=== PATIENT | female | born 1960 | race Caucasian/White ===

== ENCOUNTER 2017-05-18 10:40 | Day surgery (SDC) | payer OTHER ==
[2017-05-17 10:21] VITALS: BMI 36.3
[2017-05-18] MEDS ORDERED: Lidocaine 2% w/Epinephrine 1:200K 20 ML VIAL ONE (11:25)
[2017-05-18] MEDS ORDERED: Ondansetron HCl/PF 4 MG/2 ML Vial ONE ×3 (11:29→11:55)
[2017-05-18] MEDS ORDERED: Fentanyl 100 MCG/2 ML VIAL ONE ×4 (11:29→14:01)
[2017-05-18 11:48] LABS: Hematocrit 40.2 % (36.0-47.0)
[2017-05-18] MEDS ORDERED: Glycopyrrolate 0.2 MG/ML 5 ML SYRINGE ONE (11:55)
[2017-05-18] MEDS ORDERED: Lidocaine 1% PF 5 ML VIAL ONE (11:55)
[2017-05-18] MEDS ORDERED: Dexamethasone 20 MG/5 ML VIAL ONE (11:55)
[2017-05-18] MEDS ORDERED: Succinylcholine Chloride 20 MG/ML 10 ml SYRINGE FS ONE (11:55)
[2017-05-18] MEDS ORDERED: Propofol 200 MG/20 ML VIAL ONE (11:55)
--- NOTE | 2017-05-18 13:48 | OP ---
PREOPERATIVE DIAGNOSIS: Hyperparathyroidism. POSTOPERATIVE DIAGNOSIS: Left superior parathyroid adenoma. PROCEDURE PERFORMED: Neck exploration with removal of a large left parathyroid adenoma using laryng eal nerve monitoring. PROCEDURE IN DETAIL: After consent was obtained, the patient was identified, brought to the operati ng room and placed on the operating table in supine position. General endotracheal anesthesia was o btained and the laryngeal nerve monitoring endotracheal tube was documented to be in position and fu nctioning. We then positioned the patient and prepped and draped, and infiltrated the line of inten ded incision with 1% lidocaine with 1:100,000 epinephrine. An incision was made after antibiotics w ere administered and the incision was carried down through the skin, subcutaneous tissues, and platy sma. Subplatysmal flaps were elevated and hemostasis was obtained. We then divided the strap muscl es in midline and was able to identify the capsule of the thyroid, which allowed retraction of the s trap muscles laterally. Upon dissecting through the fascia, we immediately found a dark hypervascul ar lesion that seemed to have a distinct plane from the thyroid gland, this was dissected and found to be surprisingly large parathyroid adenoma was sent for histologic validation. We then obtained h emostasis and closed the wound in layers with absorbable suture. The patient was awakened, extubate d, and taken to recovery room in a stable condition prior to discharge home.
== END 2017-05-18 15:59 | disposition home or self-care (01) ==
LOC: SDC 10:40
PROVIDERS: ATTEND Specialist
PROC: 0GTM0ZZ Resection of Left Superior Parathyroid Gland, Open Approach (ICD-10-PCS; principal; 2017-05-18)
DX: D35.1 Benign neoplasm of parathyroid gland (principal); E21.3 Hyperparathyroidism, unspecified; I10 Essential (primary) hypertension; E78.5 Hyperlipidemia, unspecified; F32.9 Major depressive disorder, single episode, unspecified; Z79.01 Long term (current) use of anticoagulants; Z79.82 Long term (current) use of aspirin; Z79.899 Other long term (current) drug therapy; Z98.51 Tubal ligation status; Z90.49 Acquired absence of other specified parts of digestive tract; Z98.890 Other specified postprocedural states; Z86.73 Personal history of transient ischemic attack (TIA), and cerebral infarction without residual deficits; Z87.442 Personal history of urinary calculi; Z87.891 Personal history of nicotine dependence
CPT/HCPCS: 36415; 85014; 88305; 88331; 88334; 96374; J0131; J1100; J2001; J2405; J2704; J3010

== ENCOUNTER 2017-11-26 09:45 | Inpatient (IN) | payer OTHER ==
[2017-11-26] MEDS ORDERED: niCARdipine 20MG In NaCl 20 MG/200 ML BAG ONE (09:56)
[2017-11-26 09:59] LABS: #Basophils 0.1 thou/uL (0.0-0.2); #Eosinphils 0.4 thou/uL (0.0-0.7); #Lymphocytes 1.6 thou/uL (1.20-3.40); #Monocytes 0.7 thou/uL (0.11-0.59); #Neutrophils 6.4 thou/uL (1.40-6.50); %Basophils 0.8 % (0.0-1.0); %Eosinophils 4.4 % (0.0-10.0); %Lymphocytes 17.1 % (21.0-51.0); %Monocytes 7.7 % (0.0-10.0); %Neutrophils 69.9 % (42.0-75.0); Hemoglobin 13.6 g/dL (12.0-16.0); Mean Corpuscular HGB CONC 33.7 g/dL (32.0-36.0); Mean Corpuscular Hemoglobin 28.7 pg (27.0-31.0); Mean Corpuscular Volume 85.3 fl (81.0-99.0); Mean Platelet Volume 10.4 fL (7.4-10.4); Platelet Count 176 thou/uL (130-400); RBC Distribution Width 12.3 % (11.5-14.5); Red Blood Cell (RBC) Count 4.74 mill/uL (4.20-5.40); White Blood Cell (WBC) Count 9.2 thou/uL (4.8-10.8)
[2017-11-26 10:08] LABS: INR-International Normal Ratio 1.6; PTT 35.3 SEC (22.9-36.1)
[2017-11-26 10:11] LABS: ALT (SGPT) 23 U/L (8-55); AST (SGOT) 20 U/L (5-34); Albumin 4.1 g/dL (3.5-5.0); Alkaline Phosphatase 89 U/L (40-150); Anion Gap 12 mmol/L (10-20); BUN (Urea Nitrogen) 14 mg/dL (9.8-20.1); Bilirubin, Total 0.6 mg/dL (0.2-1.2); Calc. Creatinine Clearance 0 mL/min (70-130); Calcium 9.3 mg/dL (7.8-10.44); Carbon Dioxide 25 mmol/L (22-29); Chloride 106 mmol/L (98-107); Estimated GFR-MDRD 89; Globulin 2.8 g/dL (2.4-3.5); Glucose 123 mg/dL (70-105); Potassium 3.8 mmol/L (3.5-5.1); Protein, Total 6.9 g/dL (6.0-8.3); Sodium 139 mmol/L (136-145)
[2017-11-26 10:15] LABS: CKMB 1.1 ng/mL (0-6.6); Troponin I Less than 0.010 ng/mL (< 0.028)
[2017-11-26 10:40] LABS: Actual Bicarbonate (HCO3a) 25.9 mEq/L (22-26); Base Excess (BEa) 2.8 mEq/L (0 (+/-) 2.5); CO2 Tension 35.4 mmHg (35.0-45.0); Hematocrit-ABG 44.5 % (36.0-47.0); Hemoglobin (Hb) 14.3 g/dL (12.0-16.0); O2 Tension (PaO2) 159.8 mmHg (80.0-100.0); pH, Arterial 7.48 (7.35-7.45)
[2017-11-26 10:41] LABS: Analyzer IN Cardio ER; Calcium, Ionized 1.2 mmol/L (1.12-1.30); Puncture Site L.B.
--- NOTE | 2017-11-26 10:48 | CT ---
CT HEAD NONCONTRAST: Date: 11/26/17 HISTORY: Right facial droop. Altered mental status. FINDINGS: Centered at the posterior aspect of the left basal ganglia is a lobular, heterogeneous hyperdense flu id collection measuring up to 2.7 cm. The hemorrhage extends into the left lateral ventricle where a fairly large amount is apparent. No shift of the septum pellucidum. The hematoma is surrounding by a small amount of vasogenic edema. There is mild diffuse effacement of the cerebral sulci. IMPRESSION: Large left basal ganglia acute hematoma with intraventricular extension and diffuse cerebral edema. Findings called to Dr. Kang in the emergency department at 0952 hours. CODE CR. POS: [facility]
--- NOTE | 2017-11-26 10:59 | RAD ---
CHEST 1 VIEW: Date: 11/26/17 HISTORY: Intubated. FINDINGS: Cardiac silhouette magnified by projection. Pulmonary vasculature accentuated by shallow inspiration. Calcified granulomata indicate healed granulomatous disease. No lobar consolidation or evidence of p neumothorax. Tip of an endotracheal catheter overlies the thoracic inlet. Nasogastric tube descends to the stomach . IMPRESSION: Endotracheal catheter is in good radiographic position. POS: [facility]
[2017-11-26] MEDS ORDERED: Propofol 1,000 MG/100 ML VIAL IV ONE ×2 (11:00→14:43)
[2017-11-26] MEDS ORDERED: HUM PROTHROMBIN CPLX(PCC)4FACT 1,000 UNIT in Admixture Fee 1 EACH IV SCH (11:15)
[2017-11-26] MEDS ORDERED: ADMIXTURE FEE IV SCH (11:45)
[2017-11-26] MEDS ORDERED: HUM PROTHROMBIN CPLX IV SCH (11:45)
[2017-11-26] MEDS ORDERED: [UNRECOGNIZED DRUG - OTHER] IV SCH (11:45)
[2017-11-26 14:20] LABS: INR-International Normal Ratio 1.3
[2017-11-26 14:25] LABS: PTT 26.4 SEC (22.9-36.1)
--- NOTE | 2017-11-26 14:50 | CT ---
CT HEAD WITHOUT CONTRAST: Date: 11/26/17 HISTORY: Intraparenchymal hematoma follow-up. COMPARISON: Comparison made to film taken at 0950 hours this morning. FINDINGS: The large intraparenchymal hematoma centered in the left basal ganglia region is again noted. The siz e of this hematoma has increased since the earlier film. Maximal width is now measured at 4.2 cm, whe reas it previously measured approximately 2.5 cm. Intraventricular extension is noted. Mild midline s hift from left to right measured at 2-3 mm at the septum pellucidum. IMPRESSION: Increasing size of the left cerebral hemispheric parenchymal hematoma when compared to film from [facility] today. Slight midline shift is now apparent. Intraventricular extension is more extensive. POS: [facility]
[2017-11-26] MEDS ORDERED: Lidocaine 1% w/Epinephrine 1:100K 20 ML VIAL ONE (15:12)
[2017-11-26] MEDS ORDERED: Fentanyl 100 MCG/2 ML VIAL ONE (15:24)
[2017-11-26] MEDS ORDERED: Lorazepam 2 MG/ML VIAL SLOW IVP PRN (16:28)
[2017-11-26] MEDS ORDERED: fentaNYL Citrate/PF 2,000 MCG in Sodium Chloride 0.9% 60 ML IV SCH (16:28)
[2017-11-26] MEDS ORDERED: DISCONTINUE PREVIOUS NARCOTIC PAIN MEDICATIONS AND BENZODIAZEPINES FS SCH (16:28)
[2017-11-26] MEDS ORDERED: Fentanyl BOLUS 250 ML IVPB PRN (16:28)
[2017-11-26] MEDS ORDERED: Propofol BOLUS 1,000 MG/100 ML VIAL IV PRN (16:28)
[2017-11-26] MEDS ORDERED: niCARdipine 40MG In NaCl 40 MG/200 ML BAG IVPB SCH (16:30)
[2017-11-26] MEDS ORDERED: Fentanyl 100 MCG/2 ML VIAL SLOW IVP SCH (16:30)
--- NOTE | 2017-11-26 19:11 | CON ---
DATE OF CONSULTATION: 11/27/2017 HISTORY OF PRESENT ILLNESS: A 57-year-old female who apparently has got a device at home. For emerg encies, this was alerted the two sons present at the bedside teaching service. They called the ambul ance 911. EMS arrived. She had a right-sided facial droop and slurred speech. History of stroke over the right side . She was taken to the ER where a CT of the head now shows evidence of hemorrhage. A previous history is such that 02/2017, she presented with an acute CVA, right-sided weakness, statu s post TPA. Following the discharge, apparently she was found to be hypercoagulable and was placed on Xarelto. In the interim, she was seen by Urology for UTI and right ureteral calculi, associated hydronephrosis . Additionally, in 04/2017, she was found to have a left superior parathyroid adenoma, a large left par athyroid adenoma was removed. She apparently was found to be hypercalcemic at that time. She was fo und to have elevated PTH. Apparently, calcium now subsequently improved, but according to the son, there was a recent elevation of the calcium levels. She goes to the [facility] for routine care. PAST MEDICAL HISTORY: Pertinent mainly for depression, hypercoagulable state with previous right-michael ed CVA, status post TPA and 02/2017, history of hypercalcemia secondary to hyperparathyroid tumor whi ch was removed. History of hypertension. PAST SURGICAL HISTORY: , bypass surgery, tubal ligation, ureteral stent. MEDICATIONS: From home includes Xarelto 20, multivitamin, metoprolol 25 twice a day, hydrochlorothia zide 25, Prozac 40, and Lipitor 40. She was given prothrombin complex, Kcentra. Her initial CT of her head did show the left basal gangl ia bleed. PHYSICAL EXAMINATION: GENERAL: On the vent, she is intubated, sedated on Diprivan. He has had a Cardene drip 2 mg. VITAL SIGNS: Pulse 59, blood pressure is 116/66, sats are 90%, respiration is 19. HEENT: Eyes are deviated downwards. Pupils are reacting. She is moving all 4 extremities, th ough she is having some decerebrate posturing. CHEST: Decreased breath sounds, no wheezing. CARDIAC: Normal S1, S2, no gallops. ABDOMEN: Soft. LABORATORY: White count 9000, H&H 13 and 40, platelet count 176, pO2 is 159, pCO2 is 35, pH is 7.48, rate of 16, 50%. Electrolytes are normal. Calcium was 9.3. IMPRESSION: 1. Left basal ganglia hemorrhage. 2. History of hypercoagulable state on long-term anticoagulation. 3. History of hypercalcemia, status post parathyroid surgery. 4. Hypertension. PLAN: A Neurosurgery is following this patient's intracerebral hemorrhage with frequent CT. Pulmona ry [place], vent support. Control blood pressure as outlined with Lauren. Serial exam. Pulmonary Critical care will follow while in the ICU. Dr. Henriquez seen in the past will notify. 45 minutes of critical care time.
[2017-11-26] MEDS: CEFAZOLIN/Water 2 GM/20 ML SYRINGE SLOW IVP SCH (19:20)
[2017-11-26] MEDS: Propofol 1,000 MG/100 ML VIAL IV PRN (19:29)
[2017-11-26] MEDS: Morphine 4 MG/ML VIAL SLOW IVP PRN (20:14)
[2017-11-26] MEDS ORDERED: niCARdipine HCl 25 MG in Sodium Chloride 0.9% 250 ML 240 ML IVPB SCH (21:30)
[2017-11-26] MEDS: niCARdipine HCl 50 MG in Sodium Chloride 0.9% 250 ML 230 ML IVPB SCH (21:46)
[2017-11-27] MEDS: CEFAZOLIN/Water 2 GM/20 ML SYRINGE SLOW IVP SCH ×3 (02:35→18:40)
[2017-11-27] MEDS: Propofol 1,000 MG/100 ML VIAL IV PRN ×4 (04:16→21:37)
[2017-11-27 04:39] LABS: #Lymphocytes 0.9 thou/uL (1.20-3.40); #Monocytes 0.7 thou/uL (0.11-0.59); #Neutrophils 10.8 thou/uL (1.40-6.50); %Basophils 0.3 % (0.0-1.0); %Eosinophils 0.3 % (0.0-10.0); %Monocytes 5.8 % (0.0-10.0); %Neutrophils 86.7 % (42.0-75.0); Hemoglobin 12.9 g/dL (12.0-16.0); Mean Corpuscular HGB CONC 33.9 g/dL (32.0-36.0); Mean Corpuscular Hemoglobin 28.6 pg (27.0-31.0); Mean Corpuscular Volume 84.3 fl (81.0-99.0); Mean Platelet Volume 10.7 fL (7.4-10.4); Platelet Count 154 thou/uL (130-400); RBC Distribution Width 12.5 % (11.5-14.5); White Blood Cell (WBC) Count 12.5 thou/uL (4.8-10.8)
[2017-11-27 04:45] LABS: Anion Gap 12 mmol/L (10-20); BUN (Urea Nitrogen) 13 mg/dL (9.8-20.1); Calc. Creatinine Clearance 139 mL/min (70-130); Calcium 8.6 mg/dL (7.8-10.44); Carbon Dioxide 25 mmol/L (22-29); Chloride 105 mmol/L (98-107); Estimated GFR-MDRD Greater than 90; Glucose 151 mg/dL (70-105); Sodium 139 mmol/L (136-145)
[2017-11-27 04:52] LABS: Potassium 2.8 mmol/L (3.5-5.1)
[2017-11-27 06:46] LABS: Actual Bicarbonate (HCO3a) 26.6 mEq/L (22-26); Base Excess (BEa) 2.8 mEq/L (0 (+/-) 2.5); CO2 Tension 38.2 mmHg (35.0-45.0); Hematocrit-ABG 39.2 % (36.0-47.0); Hemoglobin (Hb) 12.6 g/dL (12.0-16.0); pH, Arterial 7.46 (7.35-7.45)
[2017-11-27 06:47] LABS: Calcium, Ionized 1.1 mmol/L (1.12-1.30); Puncture Site RRA
--- NOTE | 2017-11-27 09:31 | RAD ---
PORTABLE AP CHEST XRAY: DATE: 11/27/17. HISTORY: On ventilator. Followup evaluation. COMPARISON: 11/26/17. FINDINGS: Endotracheal tube and nasogastric tubes remain in place and unchanged in position. There has been in terval development of increased opacity in the right suprahilar region at the right lung apex. This could be related to interval development of collapse of the right upper lobe given short interval gwen nge from prior exam. The left lung is clear. Thoracic aorta is ectatic and stable in appearance. A nchor screws overlie the right humeral head. IMPRESSION: Interval development of opacity in the right suprahilar region and in the right lung apex which may b e related to collapse of the right upper lobe. This was not present on the prior study obtained 1 da y ago. Follow up evaluation is recommended. POS: [facility]
--- NOTE | 2017-11-27 14:01 | PRG ---
DATE OF SERVICE: 11/27/2017 SUBJECTIVE: Ms. Collazo is hospital day #01 following large left thalamic hemorrhage with intraventri cular extension on Xarelto. An EVD was placed. Her ICPs have been in the 5-10 mmHg range. She is p utting out approximately 10 mL hourly. We will continue her drain in place at this point. Should no te on exam, she does follow commands weakly in the left upper extremity, which is encouraging, she scherer s a downgaze preference. She is also plegic in the right side. We will plan for head CT tomorrow.
[2017-11-27] MEDS ORDERED: CCU Electrolyte Replacement 1 EACH FS ONE (14:42)
[2017-11-27] MEDS ORDERED: Potassium Chloride 40 MEQ in Premix Bag 1 BAG IVPB PRN (14:45)
[2017-11-27] MEDS ORDERED: Potassium Phosphate 15 MMOL in Sodium Chloride 0.9% 250 ML 250 ML IV PRN (14:45)
[2017-11-27] MEDS ORDERED: Potassium Phosphate 9 MMOL in Sodium Chloride 0.9% 100 ML IVPB PRN (14:45)
[2017-11-27] MEDS ORDERED: Potassium Phosphate 12 MMOL in Sodium Chloride 0.9% 250 ML 250 ML IV PRN (14:45)
[2017-11-27] MEDS ORDERED: Potassium Chloride 20 MEQ TAB PO PRN (14:45)
[2017-11-27] MEDS ORDERED: Magnesium Oxide 400 MG TAB PO PRN ×2 (14:45)
[2017-11-27] MEDS ORDERED: CCU ELECTROLYTE REPLACEMENT PROTOCOL FS PRN (14:45)
[2017-11-27] MEDS ORDERED: Potassium Chloride 40 MEQ in Sodium Chloride 0.9% 250 ML 250 ML IVPB PRN (14:45)
[2017-11-27] MEDS ORDERED: Magnesium 2 GM/NS 0.9% 100 ML 2 GM in Premix Bag 1 BAG IVPB PRN (14:45)
--- NOTE | 2017-11-27 14:58 | PRG ---
DATE OF SERVICE: 11/27/2017 SUBJECTIVE: Ms. Collazo remains mechanically ventilated. I met with her family that was in the room. She is still not moving her right side. A ventricular drain still in place. She will follow commands with her left side per Dr. Ruvalcaba's note. She was sedated when I evaluated her. OBJECTIVE: VITAL SIGNS: Blood pressure 120/71, heart rate 81, respiratory rate 17, oximetry is 97. Intake and output was negative 1784. LUNGS: Clear. HEART: Regular rhythm, no S3. ABDOMEN: Soft and nontender. LABORATORY DATA: White count 12.5, hemoglobin 12.9, platelets 154. Sodium 139 , potassium 2.8, chloride 105, bicarbonate 25, BUN 30, creatinine 0.65. IMPRESSION: 1. Status post thalamic bleed. 2. History of anticoagulation. 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 3. Status post ureteral calculus with hydronephrosis. 4. History of a thrombotic cerebrovascular accident in 02/2017. 5. History of parathyroid adenoma that has been resected. 6. History of hypertension. 7. History of bypass surgery. PLAN: Continue supportive care. I would not resume Xarelto at any point based on the factor VIII level. Hopefully, she will recover from this bleed. Critical care time 35 min. MTDD
--- NOTE | 2017-11-27 16:24 | PDOC.PN ---
- Subjective Encounter Start Date: 11/27/17 Encounter Start Time: 16:23 Subjective: pt seen & examined.chart reviewedin detail & care discussed w her son -: came w ICH & HTN urgency.Admitted to NS team -: IM team consulted for medical management - Objective MAR Reviewed: Yes Vital Signs & Weight: Vital Signs (12 hours) Temp Pulse Resp BP Pulse Ox 11/27/17 15:02 74 123/62 11/27/17 14:00 20 11/27/17 12:00 99 F 12 11/27/17 10:18 70 106/68 11/27/17 10:00 12 11/27/17 08:00 99 F 70 12 97 11/27/17 06:33 71 111/59 L Weight Admit Weight 208 lb Weight 208 lb 15.971 oz Most Recent Monitor Data Heart Rate from ECG 76 NIBP 129/62 NIBP BP-Mean 80 Respiration from ECG 19 SpO2 95 I&O: 11/26/17 11/27/17 11/28/17 06:59 06:59 06:59 Intake Total 624 Output Total 2408 547 Balance -1784 -547 Result Diagrams: 11/27/17 03:29 11/27/17 03:29 Additional Labs: labs reviewed Phys Exam - Physical Examination Constitutional: NAD moving Left side freely and moves head HEENT: PERRLA, moist MMs, sclera anicteric, oral pharynx no lesions ETT, EVD in place Neck: no JVD Respiratory: no wheezing, no rales, no rhonchi, clear to auscultation bilateral Cardiovascular: RRR, no significant murmur, no rub Gastrointestinal: soft, no distention, positive bowel sounds Musculoskeletal: no edema, pulses present r side not moving but limited exam d/t sedation Deviation from normal: sedated Skin: no rash Dx/Plan (1) ICH (intracerebral hemorrhage) Code(s): I61.9 - NONTRAUMATIC INTRACEREBRAL HEMORRHAGE, UNSPECIFIED Status: Acute (2) Hypertensive urgency Code(s): I16.0 - HYPERTENSIVE URGENCY Status: Acute (3) Hypokalemia Code(s): E87.6 - HYPOKALEMIA Status: Acute (4) Chronic anticoagulation Code(s): Z79.01 - MCC (CURRENT) USE OF ANTICOAGULANTS Status: Acute (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 -: check magnesium -: hold all anticoagulation in light of ICH.cont EVD monitoring.NS following -: BP controlled w cardene drip.continue. -: am labs. IM team will follow. * .Vent per PCCM * Review of Systems - Review of Systems Other: unobtainable as pt is intubated and sedated - Medications/Allergies Allergies/Adverse Reactions: Allergies Allergy/AdvReac Type Severity Reaction Status Date / Time No Known Drug Allergies Allergy Verified 03/13/17 09:38 Medications: Current Medications Cefazolin Sodium (Ancef) 2 gm SLOW IVP 0200,1000,1800 JEROMY Last Admin: 11/27/17 12:41 Dose: 2 gm Fentanyl Citrate 2,000 mcg/ (Sodium Chloride) 100 mls @ 0 mls/hr IV INF JEROMY; Per Protocol PRN Reason: Protocol Stop: 12/26/17 16:28 Fentanyl Citrate (Fentanyl Bolus) 250 mls @ 0 mls/hr IVPB PRN PRN; As Directed PRN Reason: Breakthrough pain/agitation Stop: 12/26/17 16:28 Nicardipine HCl 50 mg/ Sodium (Chloride) 250 mls @ 0 mls/hr IVPB INF JEROMY; Titrate PRN Reason: Protocol Last Admin: 11/26/17 21:46 Dose: 250 mls Potassium Chloride 40 meq/ (Sodium Chloride) 270 mls @ 135 mls/hr IVPB ASDIR PRN PRN Reason: FOR SERUM K+ 2.5 - 3.5 Potassium Chloride 40 meq/ (Device) 100 mls @ 50 mls/hr IVPB ASDIR PRN PRN Reason: FOR SERUM K+ 2.5 - 3.5 Magnesium Sulfate 1 gm/ Sodium (Chloride) 102 mls @ 102 mls/hr IV PRN PRN PRN Reason: MAG LEVEL 1.4 - 2.0 Magnesium Sulfate 2 gm/ Device 100 mls @ 100 mls/hr IVPB ASDIR PRN PRN Reason: MAGNESIUM < 1.4 Potassium Phosphate 9 mmol/ (Sodium Chloride) 103 mls @ 25.75 mls/hr IVPB ASDIR PRN PRN Reason: Phosphate 1.0-1.8 Potassium Phosphate 12 mmol/ (Sodium Chloride) 254 mls @ 63.5 mls/hr IV ASDIR PRN PRN Reason: Serum phosphate 0.5-0.9 Potassium Phosphate 15 mmol/ (Sodium Chloride) 255 mls @ 63.75 mls/hr IV ASDIR PRN PRN Reason: Serum Phos < 0.5 Lorazepam (Ativan) 2 mg SLOW IVP Q1H PRN PRN Reason: Breakthrough agitation Stop: 12/26/17 16:28 Magnesium Oxide (Magnesium Oxide) 400 mg PO BIDPRN PRN PRN Reason: FOR SERUM MAG 1.4 - 2.0 Magnesium Oxide (Magnesium Oxide) 800 mg PO PRN PRN PRN Reason: FOR SERUM MAG < 1.4 Miscellaneous Medication (Phos-Nak) 1 pkt PO TIDPRN PRN PRN Reason: FOR PHOS LEVEL 1.0 - 1.8 Miscellaneous Medication (Phos-Nak) 2 pkt PO TIDPRN PRN PRN Reason: FOR PHOS LEVEL 0.5 - 1.0 Morphine Sulfate (Morphine) 2 mg SLOW IVP Q1H PRN PRN Reason: breakthrough pain/agitation Stop: 12/26/17 16:28 Last Admin: 11/26/17 20:14 Dose: 2 mg Discontinue Previous Narcotic Pain Medications And Benzodiazepines 1 each FS .ONE JEROMY Stop: 12/26/17 16:28 Ccu Electrolyte (Replacement Protocol) 0 each FS PRN PRN PRN Reason: FOR ELECTROLYTE REPLACEMENT Potassium Chloride (K-Dur) 40 meq PO ASDIR PRN PRN Reason: FOR SERUM K+ 2.5 - 3.5 Potassium Chloride (Klor-Con) 40 meq PER TUBE ASDIR PRN PRN Reason: FOR SERUM K+ 2.5-3.5 Potassium Chloride (Klor-Con) 40 meq PER TUBE NOW JEROMY Stop: 11/27/17 17:00 Last Admin: 11/27/17 15:12 Dose: 40 meq Propofol (Diprivan) 1,000 mg IV INF PRN; Protocol PRN Reason: TO ACHIEVE GOAL RASS Stop: 12/26/17 16:28 Last Admin: 11/27/17 16:15 Dose: 1,000 mg Propofol (Diprivan Bolus) 20 mg IV Q5MIN PRN PRN Reason: BREAKTHROUGH AGITATION Stop: 12/26/17 16:28
[2017-11-27 19:49] LABS: Potassium 3.2 mmol/L (3.5-5.1)
[2017-11-28] MEDS: CEFAZOLIN/Water 2 GM/20 ML SYRINGE SLOW IVP SCH ×2 (02:30→12:04)
[2017-11-28] MEDS: Propofol 1,000 MG/100 ML VIAL IV PRN ×2 (02:30→14:04)
[2017-11-28 04:47] LABS: #Monocytes 1.1 thou/uL (0.11-0.59); #Neutrophils 14.1 thou/uL (1.40-6.50); %Basophils 0.1 % (0.0-1.0); %Eosinophils 0.3 % (0.0-10.0); %Lymphocytes 6.4 % (21.0-51.0); %Monocytes 6.6 % (0.0-10.0); %Neutrophils 86.7 % (42.0-75.0); Hemoglobin 13.6 g/dL (12.0-16.0); Mean Corpuscular HGB CONC 33.5 g/dL (32.0-36.0); Mean Corpuscular Hemoglobin 28.4 pg (27.0-31.0); Mean Corpuscular Volume 84.8 fl (81.0-99.0); Mean Platelet Volume 10.5 fL (7.4-10.4); Platelet Count 152 thou/uL (130-400); RBC Distribution Width 12.7 % (11.5-14.5); White Blood Cell (WBC) Count 16.2 thou/uL (4.8-10.8)
[2017-11-28 04:53] LABS: Anion Gap 12 mmol/L (10-20); BUN (Urea Nitrogen) 16 mg/dL (9.8-20.1); Calc. Creatinine Clearance 137 mL/min (70-130); Calcium 9.2 mg/dL (7.8-10.44); Carbon Dioxide 27 mmol/L (22-29); Chloride 105 mmol/L (98-107); Estimated GFR-MDRD Greater than 90; Glucose 167 mg/dL (70-105); Potassium 3.4 mmol/L (3.5-5.1); Sodium 141 mmol/L (136-145)
[2017-11-28 07:03] LABS: Actual Bicarbonate (HCO3a) 25.5 mEq/L (22-26); Base Excess (BEa) 2.7 mEq/L (0 (+/-) 2.5); CO2 Tension 33.7 mmHg (35.0-45.0); Hematocrit-ABG 40.5 % (36.0-47.0); Hemoglobin (Hb) 13.2 g/dL (12.0-16.0); O2 Tension (PaO2) 44.9 mmHg (80.0-100.0)
[2017-11-28 07:04] LABS: ALV-art Gradient 198.175 (0-20); Calcium, Ionized 1.2 mmol/L (1.12-1.30); Puncture Site RBA
--- NOTE | 2017-11-28 08:11 | CT ---
PRELIMINARY REPORT/[facility]/EMERGENTY AFTER-HOURS PROCEDURE CT Head Without Intravenous Contrast EXAM DATE/TIME: Exam ordered 11/28/2017 3:43 AM CLINICAL HISTORY: 57 years old, female; Condition or disease; Other: Follow up ich; Patient HX: Ich with enlarged ventr icles TECHNIQUE: Axial computed tomography images of the head/brain without intravenous contrast. COMPARISON: CT Brain WO Con 2017-11-26 14:35 FINDINGS: Brain: Redemonstrated is large LEFT temporoparietal parenchymal hemorrhage with intraventricular exte nsion, similar to prior. Ventricles: Intraventricular hemorrhage is seen within the LEFT lateral ventricle, bilateral occipita l horns and third ventricle. Bones/joints: Normal. No acute fracture. Soft tissues: Normal. Sinuses: Unremarkable as visualized. No acute sinusitis. Mastoid air cells: Unremarkable as visualized. No mastoid effusion. Tubes, lines and devices: Interval placement of a ventricular drain entering from the RIGHT frontal r egion and coursing through the LEFT frontal horn with tip possibly within the adjacent brain miguel beal. IMPRESSION: Redemonstrated is large LEFT temporoparietal parenchymal hemorrhage with intraventricular extension, similar to prior. Interval placement of a ventricular drain entering from the RIGHT frontal region an d coursing through the LEFT frontal horn with tip possibly within the adjacent brain parenchyma. Thank you for allowing us to participate in the care of your patient. Dictated and Authenticated by: Evan Bradford MD 11/28/2017 4:06 AM Central Time ([place] & [place]) FINAL REPORT NONCONTRAST HEAD CT: HISTORY: Followup intracranial hemorrhage. COMPARISON: 11/26/17. TECHNIQUE: Noncontrast head CT is performed from the skull base to the skull vertex. FINDINGS: Interval placement of a [employer] shunt catheter. The distal tip crosses the ventricular system and termina ortega just lateral to the left caudate nucleus. Expected pneumocephalus is identified. The ventricula r system continues to be prominent. There is evidence of intraventricular hemorrhage. Intraparenchy mal hemorrhage is also redemonstrated. The largest hematoma centered in the left deep pro matter st ructures measures 3.8 x 2.5 cm (previously measuring 4.2 x 3.3 cm). There is persistent [id number] t subfalcine herniation 4 mm (previously 2 mm). IMPRESSION: This report is in agreement with the preliminary report by [facility]. POS: [facility]
--- NOTE | 2017-11-28 08:32 | RAD ---
SINGLE VIEW OF THE CHEST: COMPARISON: 11/27/17. HISTORY: Ventilated patient with respiratory failure. FINDINGS: A single view of the chest shows a normal-size cardiomediastinal silhouette. There is a moderate to large right pleural effusion which has increased compared to the prior examination. An endotracheal tube is seen with its tube at the upper border of the clavicles. An NG tube courses off the inferior aspect of the film. There is volume loss in the right thorax and a portion of the right thoracic op acity is likely volume loss/atelectasis. IMPRESSION: 1. Moderate to large right pleural effusion. 2. Right-sided pulmonary atelectasis, most likely involving the right upper lobe. POS: [facility]
[2017-11-28] MEDS: Acetaminophen 650 MG/20.3 ML UDCUP PO PRN (13:27)
[2017-11-28] MEDS: niCARdipine HCl 50 MG in Sodium Chloride 0.9% 250 ML 230 ML IVPB SCH ×2 (14:04→17:35)
--- NOTE | 2017-11-28 14:50 | PDOC.PN ---
- Subjective Encounter Start Date: 11/28/17 Encounter Start Time: 14:48 Subjective: remains intubated.friends at bedside. -: nursing reported high fever.moving R side less today - Objective MAR Reviewed: Yes Vital Signs & Weight: Vital Signs (12 hours) Temp Pulse Resp Pulse Ox 11/28/17 14:00 29 H 11/28/17 13:26 120 H 11/28/17 12:00 102.6 F H 22 H 11/28/17 10:00 16 11/28/17 09:56 110 H 11/28/17 08:00 99.5 F 103 H 16 92 L 11/28/17 06:47 113 H 11/28/17 06:00 14 11/28/17 04:00 99.7 F H 12 Weight Admit Weight 208 lb Weight 208 lb 15.971 oz Most Recent Monitor Data Heart Rate from ECG 112 NIBP 159/78 NIBP BP-Mean 118 Respiration from ECG 22 SpO2 90 I&O: 11/27/17 11/28/17 11/29/17 06:59 06:59 06:59 Intake Total 624 2022 Output Total 2408 1579 366 Balance -1784 443 -366 Result Diagrams: 11/28/17 03:22 11/28/17 03:22 Additional Labs: Laboratory Tests 11/26/17 11/26/17 11/27/17 09:47 09:47 03:29 WBC 9.2 Potassium 3.8 2.8 L* 11/27/17 11/27/17 11/28/17 03:29 19:13 03:22 WBC 12.5 H Potassium 3.2 L 3.4 L 11/28/17 03:22 WBC 16.2 H Potassium labs reviewed Phys Exam - Physical Examination Constitutional: NAD sedated HEENT: PERRLA, moist MMs, sclera anicteric, oral pharynx no lesions Neck: no JVD Respiratory: no wheezing, no rales, no rhonchi, clear to auscultation bilateral Cardiovascular: RRR, no significant murmur Gastrointestinal: soft, non-tender, no distention, positive bowel sounds Musculoskeletal: no edema, pulses present moves right arm only.left side seems paralysed sedated Skin: no rash Dx/Plan (1) Fever Code(s): R50.9 - FEVER, UNSPECIFIED Status: Acute Comment: suspect aspiration PNA or cerebral fever from massive cerebral hemorrhage (2) ICH (intracerebral hemorrhage) Code(s): I61.9 - NONTRAUMATIC INTRACEREBRAL HEMORRHAGE, UNSPECIFIED Status: Acute Qualifiers: Intracerebral hemorrhage etiology: nontraumatic Comment: s/p EVD per NS (3) Hypertensive urgency Code(s): I16.0 - HYPERTENSIVE URGENCY Status: Acute Comment: better controlled on Cardene drip (4) Hypokalemia Code(s): E87.6 - HYPOKALEMIA Status: Acute Comment: on CCU electrolyte protocol (5) Chronic anticoagulation Code(s): Z79.01 - 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 PROFESSOR (CURRENT) USE OF ANTICOAGULANTS Status: Acute Comment: Xarelto on hold due to brain bleed (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 -: neurosurgery primary.BP controlled w cardene -: cont to hold xarelto.left message for her construction safety consultant Dr. pro about same -: Brain CT shows slightly small hemorrhage but w herniation * .critically ill w high chances of decompensation * am labs * will follow * replace and recheck potassium Review of Systems - Review of Systems Other: can not be obtained due to sedation,encephalopathy from ICH - Medications/Allergies Allergies/Adverse Reactions: Allergies Allergy/AdvReac Type Severity Reaction Status Date / Time No Known Drug Allergies Allergy Verified 03/13/17 09:38 Medications: Current Medications Acetaminophen (Tylenol Elixir) 650 mg PO Q6H PRN PRN Reason: Fever Last Admin: 11/28/17 13:27 Dose: 650 mg Cefazolin Sodium (Ancef) 2 gm SLOW IVP 0200,1000,1800 JEROMY Last Admin: 05/08/18 12:04 Dose: 2 gm Fentanyl Citrate 2,000 mcg/ (Sodium Chloride) 100 mls @ 0 mls/hr IV INF JEROMY; Per Protocol PRN Reason: Protocol Stop: 12/26/17 16:28 Fentanyl Citrate (Fentanyl Bolus) 250 mls @ 0 mls/hr IVPB PRN PRN; As Directed PRN Reason: Breakthrough pain/agitation Stop: 12/26/17 16:28 Nicardipine HCl 50 mg/ Sodium (Chloride) 250 mls @ 0 mls/hr IVPB INF JEROMY; Titrate PRN Reason: Protocol Last Admin: 11/28/17 14:04 Dose: 250 mls Potassium Chloride 40 meq/ (Sodium Chloride) 270 mls @ 135 mls/hr IVPB ASDIR PRN PRN Reason: FOR SERUM K+ 2.5 - 3.5 Potassium Chloride 40 meq/ (Device) 100 mls @ 50 mls/hr IVPB ASDIR PRN PRN Reason: FOR SERUM K+ 2.5 - 3.5 Magnesium Sulfate 1 gm/ Sodium (Chloride) 102 mls @ 102 mls/hr IV PRN PRN PRN Reason: MAG LEVEL 1.4 - 2.0 Magnesium Sulfate 2 gm/ Device 100 mls @ 100 mls/hr IVPB ASDIR PRN PRN Reason: MAGNESIUM < 1.4 Potassium Phosphate 9 mmol/ (Sodium Chloride) 103 mls @ 25.75 mls/hr IVPB ASDIR PRN PRN Reason: Phosphate 1.0-1.8 Potassium Phosphate 12 mmol/ (Sodium Chloride) 254 mls @ 63.5 mls/hr IV ASDIR PRN PRN Reason: Serum phosphate 0.5-0.9 Potassium Phosphate 15 mmol/ (Sodium Chloride) 255 mls @ 63.75 mls/hr IV ASDIR PRN PRN Reason: Serum Phos < 0.5 Ceftriaxone Sodium 2 gm/ (Sodium Chloride) 100 mls @ 200 mls/hr IVPB 1500 JEROMY Vancomycin HCl 1 gm/ Device 200 mls @ 200 mls/hr IVPB 0400,1600 JEROMY Lorazepam (Ativan) 2 mg SLOW IVP Q1H PRN PRN Reason: Breakthrough agitation Stop: 12/26/17 16:28 Last Admin: 11/27/17 21:36 Dose: 2 mg Magnesium Oxide (Magnesium Oxide) 400 mg PO BIDPRN PRN PRN Reason: FOR SERUM MAG 1.4 - 2.0 Magnesium Oxide (Magnesium Oxide) 800 mg PO PRN PRN PRN Reason: FOR SERUM MAG < 1.4 Miscellaneous Medication (Phos-Nak) 1 pkt PO TIDPRN PRN PRN Reason: FOR PHOS LEVEL 1.0 - 1.8 Miscellaneous Medication (Phos-Nak) 2 pkt PO TIDPRN PRN PRN Reason: FOR PHOS LEVEL 0.5 - 1.0 Morphine Sulfate (Morphine) 2 mg SLOW IVP Q1H PRN PRN Reason: breakthrough pain/agitation Stop: 12/26/17 16:28 Last Admin: 11/26/17 20:14 Dose: 2 mg Discontinue Previous Narcotic Pain Medications And Benzodiazepines 1 each FS .ONE JEROMY Stop: 12/26/17 16:28 Ccu Electrolyte (Replacement Protocol) 0 each FS PRN PRN PRN Reason: FOR ELECTROLYTE REPLACEMENT Potassium Chloride (K-Dur) 40 meq PO ASDIR PRN PRN Reason: FOR SERUM K+ 2.5 - 3.5 Potassium Chloride (Klor-Con) 40 meq PER TUBE ASDIR PRN PRN Reason: FOR SERUM K+ 2.5-3.5 Last Admin: 11/28/17 02:30 Dose: 40 meq Propofol (Diprivan) 1,000 mg IV INF PRN; Protocol PRN Reason: TO ACHIEVE GOAL RASS Stop: 12/26/17 16:28 Last Admin: 11/28/17 14:04 Dose: 1,000 mg Propofol (Diprivan Bolus) 20 mg IV Q5MIN PRN PRN Reason: BREAKTHROUGH AGITATION Stop: 12/26/17 16:28
--- NOTE | 2017-11-28 15:15 | ULT ---
BILATERAL LOWER EXTREMITY VENOUS ULTRASOUND WITH DOPPLER: HISTORY: Pain. Edema. COMPARISON: None. TECHNIQUE: Romo-scale, color-flow, and Doppler imaging with spectral wave-form analysis was performed of the lef t and right lower extremity venous system. FINDINGS: Bilaterally, there is compressibility, presence of flow, and augmentation in the common femoral vein, femoral vein, and popliteal vein. There is flow in the bilateral greater saphenous veins, profunda veins, and posterior tibial veins. IMPRESSION: No evidence of thrombus in the left or right lower extremity deep venous system. POS: [facility]
--- NOTE | 2017-11-28 15:29 | PRG ---
DATE OF SERVICE: 11/28/2017 SUBJECTIVE: Ms. Collazo is neurologically unchanged. OBJECTIVE: VITAL SIGNS: She is 159/78, heart rate is 112. She actually had a temperature elevation this aftern oon. Cultures have been done. LUNGS: Remarkable for mild rhonchi bilaterally. HEART: Regular rhythm. ABDOMEN: Soft. EXTREMITIES: Without asymmetry. IMAGING: Chest radiograph shows atelectasis on the right suggestive of lower lobe mucous plugging. I doubt she has a massive effusion on the right. After cultures were done, we will start vancomycin and Rocephin. I have asked the nurse to contact Neurosurgery see if they want to culture cerebrospinal fluid, altho ugh it is early for her to have fever from a CSF infection. I suspect this is more likely related to a neurological event or atelectasis in the right lung. Her white count is 16.2, hemoglobin is 13.6, platelets are 152,000. Electrolytes are unremarkable. Potassium is up to 3.4. Blood gas shows pH 7.5, CO2 33, pO2 of 44. Her PEEP was increased to 7 today. IMPRESSION: 1. Status post parenchymal brain hemorrhage on anticoagulants. She is still hemiplegic. We will co ntinue supportive care. 2. Fever. Cultures have been drawn. If her radiograph does not improve overnight, we will consider a bronchoscopy for therapeutic suctioning tomorrow. She is not on any nebulizer treatments, so thes e will be added and I suspect she will improve with this. CRITICAL CARE TIME: 30 minutes.
[2017-11-28] MEDS ORDERED: guaiFENesin 200 MG TAB PO SCH (15:30)
[2017-11-28] MEDS: cefTRIAXone\\ROCEPHIN 2 GM in Sodium Chloride 0.9% 100 ML IVPB SCH (15:35)
[2017-11-28] MEDS: Vancomycin HCl 1 GM in Premix Bag 1 BAG IVPB SCH (15:35)
[2017-11-28] MEDS: guaiFENesin 200 MG TAB PO SCH (20:03)
[2017-11-29] MEDS: guaiFENesin 200 MG TAB PO SCH ×6 (00:15→20:00)
[2017-11-29] MEDS: Propofol 1,000 MG/100 ML VIAL IV PRN ×3 (01:30→14:18)
[2017-11-29] MEDS: Vancomycin HCl 1 GM in Premix Bag 1 BAG IVPB SCH ×2 (04:28→15:49)
[2017-11-29 05:04] LABS: #Basophils 0.1 thou/uL (0.0-0.2); #Eosinphils 0.1 thou/uL (0.0-0.7); #Lymphocytes 0.9 thou/uL (1.20-3.40); #Neutrophils 9.9 thou/uL (1.40-6.50); %Basophils 0.6 % (0.0-1.0); %Eosinophils 0.7 % (0.0-10.0); %Lymphocytes 7.5 % (21.0-51.0); %Monocytes 8.1 % (0.0-10.0); %Neutrophils 83.1 % (42.0-75.0); Mean Corpuscular HGB CONC 32.9 g/dL (32.0-36.0); Mean Corpuscular Hemoglobin 28.8 pg (27.0-31.0); Mean Corpuscular Volume 87.6 fl (81.0-99.0); Mean Platelet Volume 10.5 fL (7.4-10.4); Platelet Count 131 thou/uL (130-400); RBC Distribution Width 12.7 % (11.5-14.5); Red Blood Cell (RBC) Count 4.17 mill/uL (4.20-5.40); White Blood Cell (WBC) Count 11.9 thou/uL (4.8-10.8)
[2017-11-29 05:14] LABS: Anion Gap 13 mmol/L (10-20); BUN (Urea Nitrogen) 22 mg/dL (9.8-20.1); Calc. Creatinine Clearance 163 mL/min (70-130); Calcium 8.7 mg/dL (7.8-10.44); Carbon Dioxide 24 mmol/L (22-29); Chloride 108 mmol/L (98-107); Estimated GFR-MDRD Greater than 90; Glucose 153 mg/dL (70-105); Potassium 3.3 mmol/L (3.5-5.1); Sodium 142 mmol/L (136-145)
[2017-11-29 07:10] LABS: Actual Bicarbonate (HCO3a) 26.7 mEq/L (22-26); CO2 Tension 37.7 mmHg (35.0-45.0); Hematocrit-ABG 35.6 % (36.0-47.0); Hemoglobin (Hb) 11.8 g/dL (12.0-16.0); O2 Tension (PaO2) 73.8 mmHg (80.0-100.0); pH, Arterial 7.47 (7.35-7.45)
[2017-11-29 07:11] LABS: ALV-art Gradient 199.925 (0-20); Calcium, Ionized 1.2 mmol/L (1.12-1.30); Puncture Site L.R.
[2017-11-29] MEDS: Acetaminophen 650 MG/20.3 ML UDCUP PO PRN ×2 (08:31→20:00)
--- NOTE | 2017-11-29 09:42 | RAD ---
FRONTAL VIEW CHEST: Date: 11/29/17 COMPARISON: Previous day. INDICATION: Ventilated patient, follow-up. FINDINGS: Endotracheal and esophagogastric tubes remain. Left lateral lung base is excluded. Patchy bibasilar d ensities are present. There has been interval improvement with regard to prior density of the right h emithorax. Numerous extrinsic artifact limit evaluation. IMPRESSION: 1. Decreasing density within the right hemithorax. 2. Residual patchy bibasilar opacities remain. POS: [facility]
--- NOTE | 2017-11-29 10:05 | PRG ---
DATE OF SERVICE: 11/29/2017 Ms. 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 I spoke to her primary care physician. 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 Unfortunately, we cannot put her on any anticoagulants obviously so we will need to do surveillance ultrasounds. I gin uld note that an ultrasound yesterday was negative for DVT. We will have to continue to keep an eye on this. Her drain is open at 0 and she has as expected output given her hydrocephalus. I have phuong mascorro her family. Her exam remains a 7T.
--- NOTE | 2017-11-29 13:57 | PDOC.PN ---
- Subjective Encounter Start Date: 11/29/17 Encounter Start Time: 13:55 Subjective: remains intubated and sedated.no new changes overnight -: labs reviewed - Objective MAR Reviewed: Yes Vital Signs & Weight: Vital Signs (12 hours) Temp Pulse Resp BP BP Pulse Ox 11/29/17 13:24 96 20 139/94 H 100 11/29/17 12:00 14 11/29/17 10:28 110 H 152/77 H 11/29/17 10:26 114 H 14 100 11/29/17 10:00 99.1 F 12 11/29/17 08:00 100.7 F H 120 H 23 H 96 11/29/17 07:00 100.7 F H 11/29/17 06:44 122 H 141/92 H 11/29/17 06:42 122 H 18 100 11/29/17 06:00 12 11/29/17 04:00 99.3 F 13 11/29/17 02:11 90 16 100 11/29/17 02:00 22 H Weight Admit Weight 208 lb Weight 225 lb 4.999 oz Most Recent Monitor Data Heart Rate from ECG 106 NIBP 162/96 NIBP BP-Mean 116 Respiration from ECG 17 SpO2 100 I&O: 11/28/17 11/29/17 11/30/17 06:59 06:59 06:59 Intake Total 2021 1955 200 Output Total 1579 1453 628 Balance 443 503 -428 Result Diagrams: 11/29/17 04:19 11/29/17 04:19 Additional Labs: Microbiology 11/28/17 12:59 Venous blood - Left Hand Blood Culture - Preliminary Specimen has been received and culture in progress. No Growth to date. 11/28/17 12:56 Venous blood - Left Hand Blood Culture - Preliminary Specimen has been received and culture in progress. No Growth to date. 11/28/17 12:56 Urine michael catheter Urine Culture - Preliminary NO GROWTH AT 24 HOURS Phys Exam - Physical Examination Constitutional: NAD HEENT: PERRLA, moist MMs, sclera anicteric, oral pharynx no lesions ETT,EVD Neck: no JVD Respiratory: no wheezing, no rales, no rhonchi, clear to auscultation bilateral reduced on R side Cardiovascular: RRR, no significant murmur Gastrointestinal: soft, non-tender, no distention, positive bowel sounds Musculoskeletal: no edema, pulses present sedated Deviation from normal: sedated Skin: no rash Dx/Plan (1) Fever Code(s): R50.9 - FEVER, UNSPECIFIED Status: Acute Comment: suspect aspiration PNA or cerebral fever from massive cerebral hemorrhage (2) ICH (intracerebral hemorrhage) Code(s): I61.9 - NONTRAUMATIC INTRACEREBRAL HEMORRHAGE, UNSPECIFIED Status: Acute Qualifiers: Intracerebral hemorrhage etiology: nontraumatic Comment: s/p EVD per NS (3) Hypertensive urgency Code(s): I16.0 - HYPERTENSIVE URGENCY Status: Acute Comment: better controlled on Cardene drip (4) Hypokalemia Code(s): E87.6 - HYPOKALEMIA Status: Acute Comment: on CCU electrolyte protocol (5) Chronic anticoagulation Code(s): 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 Status: Acute Comment: Xarelto on hold due to brain bleed (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 -: cont empiric ABx for fever & possible Asp PNA.follow Cx results-ve so far -: replace Potassium & cont CCU electrolyte protocol -: EVD per NS.cont to hold xarelto -: Vent manamgement per PCCM * .AM labs.CXR * remains critical Review of Systems - Review of Systems Other: Unobtainable due to sedation and intubation - Medications/Allergies Allergies/Adverse Reactions: Allergies Allergy/AdvReac Type Severity Reaction Status Date / Time No Known Drug Allergies Allergy Verified 03/13/17 09:38 Medications: Current Medications Acetaminophen (Tylenol Elixir) 650 mg PO Q6H PRN PRN Reason: Fever Last Admin: 11/29/17 08:31 Dose: 650 mg Albuterol/Ipratropium (Duoneb) 3 ml NEB [id number] JEROMY Last Admin: 11/29/17 10:26 Dose: 3 ml Guaifenesin (Organ-I Nr) 400 mg PO Q4HR JEROMY Last Admin: 11/29/17 12:50 Dose: 400 mg Fentanyl Citrate 2,000 mcg/ (Sodium Chloride) 100 mls @ 0 mls/hr IV INF JEROMY; Per Protocol PRN Reason: Protocol Stop: 12/26/17 16:28 Fentanyl Citrate (Fentanyl Bolus) 250 mls @ 0 mls/hr IVPB PRN PRN; As Directed PRN Reason: Breakthrough pain/agitation Stop: 12/26/17 16:28 Nicardipine HCl 50 mg/ Sodium (Chloride) 250 mls @ 0 mls/hr IVPB INF JEROMY; Titrate PRN Reason: Protocol Last Admin: 11/28/17 17:35 Dose: 250 mls Potassium Chloride 40 meq/ (Sodium Chloride) 270 mls @ 135 mls/hr IVPB ASDIR PRN PRN Reason: FOR SERUM K+ 2.5 - 3.5 Potassium Chloride 40 meq/ (Device) 100 mls @ 50 mls/hr IVPB ASDIR PRN PRN Reason: FOR SERUM K+ 2.5 - 3.5 Magnesium Sulfate 1 gm/ Sodium (Chloride) 102 mls @ 102 mls/hr IV PRN PRN PRN Reason: MAG LEVEL 1.4 - 2.0 Magnesium Sulfate 2 gm/ Device 100 mls @ 100 mls/hr IVPB ASDIR PRN PRN Reason: MAGNESIUM < 1.4 Potassium Phosphate 9 mmol/ (Sodium Chloride) 103 mls @ 25.75 mls/hr IVPB ASDIR PRN PRN Reason: Phosphate 1.0-1.8 Potassium Phosphate 12 mmol/ (Sodium Chloride) 254 mls @ 63.5 mls/hr IV ASDIR PRN PRN Reason: Serum phosphate 0.5-0.9 Potassium Phosphate 15 mmol/ (Sodium Chloride) 255 mls @ 63.75 mls/hr IV ASDIR PRN PRN Reason: Serum Phos < 0.5 Ceftriaxone Sodium 2 gm/ (Sodium Chloride) 100 mls @ 200 mls/hr IVPB 1500 JEROMY Last Admin: 11/28/17 15:35 Dose: 100 mls Vancomycin HCl 1 gm/ Device 200 mls @ 200 mls/hr IVPB 0400,1600 JEROMY Last Admin: 11/29/17 04:28 Dose: 200 mls Lorazepam (Ativan) 2 mg SLOW IVP Q1H PRN PRN Reason: Breakthrough agitation Stop: 12/26/17 16:28 Last Admin: 11/27/17 21:36 Dose: 2 mg Magnesium Oxide (Magnesium Oxide) 400 mg PO BIDPRN PRN PRN Reason: FOR SERUM MAG 1.4 - 2.0 Magnesium Oxide (Magnesium Oxide) 800 mg PO PRN PRN PRN Reason: FOR SERUM MAG < 1.4 Miscellaneous Medication (Phos-Nak) 1 pkt PO TIDPRN PRN PRN Reason: FOR PHOS LEVEL 1.0 - 1.8 Miscellaneous Medication (Phos-Nak) 2 pkt PO TIDPRN PRN PRN Reason: FOR PHOS LEVEL 0.5 - 1.0 Morphine Sulfate (Morphine) 2 mg SLOW IVP Q1H PRN PRN Reason: breakthrough pain/agitation Stop: 12/26/17 16:28 Last Admin: 11/26/17 20:14 Dose: 2 mg Discontinue Previous Narcotic Pain Medications And Benzodiazepines 1 each FS .ONE JEROMY Stop: 12/26/17 16:28 Ccu Electrolyte (Replacement Protocol) 0 each FS PRN PRN PRN Reason: FOR ELECTROLYTE REPLACEMENT Potassium Chloride (K-Dur) 40 meq PO ASDIR PRN PRN Reason: FOR SERUM K+ 2.5 - 3.5 Potassium Chloride (Klor-Con) 40 meq PER TUBE ASDIR PRN PRN Reason: FOR SERUM K+ 2.5-3.5 Last Admin: 11/29/17 08:29 Dose: 40 meq Propofol (Diprivan) 1,000 mg IV INF PRN; Protocol PRN Reason: TO ACHIEVE GOAL RASS Stop: 12/26/17 16:28 Last Admin: 11/29/17 04:27 Dose: 1,000 mg Propofol (Diprivan Bolus) 20 mg IV Q5MIN PRN PRN Reason: BREAKTHROUGH AGITATION Stop: 12/26/17 16:28
[2017-11-29] MEDS: Morphine 4 MG/ML VIAL SLOW IVP PRN ×2 (14:18→23:59)
[2017-11-29] MEDS: cefTRIAXone\\ROCEPHIN 2 GM in Sodium Chloride 0.9% 100 ML IVPB SCH (14:21)
[2017-11-29] MEDS: niCARdipine HCl 50 MG in Sodium Chloride 0.9% 250 ML 230 ML IVPB SCH (15:35)
[2017-11-29] MEDS: Enalaprilat Dihydrate 1.25 MG/ML VIAL SLOW IVP SCH (17:19)
--- NOTE | 2017-11-29 23:43 | PRG ---
DATE OF SERVICE: 11/29/2017 SUBJECTIVE: Ms. Collazo remains hemodynamically stable. I met with family and answered all their que stions this morning. OBJECTIVE: VITAL SIGNS: Heart rates in the 120s to 130s, blood pressure 136/86, respiratory rate is 20. GENERAL: She still spontaneously moves her left side, she has not been moving her right side. LUNGS: Clear. HEART: Regular rhythm. S1 and S2 are normal. ABDOMEN: Soft and nontender. EXTREMITIES: Without asymmetry. LABORATORY DATA: White count 11.9, hemoglobin 12.0, and platelets 131. Sodium 142, potassium is 3.3, chloride 108, bicarbonate 24, BUN 22, and creatinine 0.6. Intake and output positive 503. She is tolerating her nutrition. IMPRESSION: 1. Parenchymal brain hemorrhage with ventricular extension and external ventricular drain in place w ith right hemiparesis. 2. 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 PLAN: Plan to continue supportive care. She carries a diagnosis of having a hypercoagulable state, but the only abnormality I have identified reviewing labs is elevated factor VIII. Nobody agrees in academics circles that factor VIII increase needs to be treated with long-term antic oagulation. I have actually reviewed this again with the deputy county counsel and they agree. Her bedridden state still is a risk factor for thromboembolic disease, so she will continue to have s erial lower extremity Dopplers with eventual placement of a filter if this was ever identified. We w ill continue with her current critical care management. She is not weanable. I reviewed today's chest radiograph in the addition of nebulizer therapy, mucolytics led to dramatic improvement in both her radiograph and her gas exchange. Her pH this morning 7.47, CO2 of 37, pO2 of 73 and was on 45% FiO2, tidal volume 500, pressure support of 10, PEEP of 7. Critical care time was 30 minutes.
[2017-11-30] MEDS: Enalaprilat Dihydrate 1.25 MG/ML VIAL SLOW IVP SCH ×4 (05:02→18:08)
[2017-11-30] MEDS: niCARdipine HCl 50 MG in Sodium Chloride 0.9% 250 ML 230 ML IVPB SCH ×2 (05:02→16:38)
[2017-11-30] MEDS: Vancomycin HCl 1 GM in Premix Bag 1 BAG IVPB SCH ×2 (05:02→15:56)
[2017-11-30] MEDS: guaiFENesin 200 MG TAB PO SCH ×3 (05:02→09:56)
[2017-11-30 06:04] LABS: #Eosinphils 0.5 thou/uL (0.0-0.7); #Lymphocytes 1.1 thou/uL (1.20-3.40); #Monocytes 0.9 thou/uL (0.11-0.59); #Neutrophils 7.2 thou/uL (1.40-6.50); %Basophils 0.3 % (0.0-1.0); %Eosinophils 5.4 % (0.0-10.0); %Lymphocytes 11.4 % (21.0-51.0); %Monocytes 8.9 % (0.0-10.0); %Neutrophils 73.9 % (42.0-75.0); Hemoglobin 12.3 g/dL (12.0-16.0); Mean Corpuscular HGB CONC 31.9 g/dL (32.0-36.0); Mean Corpuscular Hemoglobin 27.9 pg (27.0-31.0); Mean Corpuscular Volume 87.6 fl (81.0-99.0); Mean Platelet Volume 10.2 fL (7.4-10.4); Platelet Count 165 thou/uL (130-400); RBC Distribution Width 12.7 % (11.5-14.5); Red Blood Cell (RBC) Count 4.39 mill/uL (4.20-5.40); White Blood Cell (WBC) Count 9.8 thou/uL (4.8-10.8)
[2017-11-30 06:22] LABS: Anion Gap 14 mmol/L (10-20); BUN (Urea Nitrogen) 15 mg/dL (9.8-20.1); Calc. Creatinine Clearance 188 mL/min (70-130); Calcium 8.6 mg/dL (7.8-10.44); Carbon Dioxide 23 mmol/L (22-29); Chloride 107 mmol/L (98-107); Estimated GFR-MDRD Greater than 90; Glucose 120 mg/dL (70-105); Potassium 3.8 mmol/L (3.5-5.1); Sodium 140 mmol/L (136-145)
[2017-11-30 07:58] LABS: Actual Bicarbonate (HCO3a) 27.6 mEq/L (22-26); Base Excess (BEa) 3.9 mEq/L (0 (+/-) 2.5); CO2 Tension 38.2 mmHg (35.0-45.0); Hematocrit-ABG 33.9 % (36.0-47.0); Hemoglobin (Hb) 10.6 g/dL (12.0-16.0); O2 Tension (PaO2) 64.4 mmHg (80.0-100.0); pH, Arterial 7.48 (7.35-7.45)
[2017-11-30 07:59] LABS: Calcium, Ionized 1.2 mmol/L (1.12-1.30); Puncture Site L.B.
--- NOTE | 2017-11-30 09:12 | PDOC.PN ---
- Subjective Encounter Start Date: 11/30/17 Encounter Start Time: 09:11 Subjective: remains vent dependent -: nursing report redness & warmth L upper arm - Objective MAR Reviewed: Yes Vital Signs & Weight: Vital Signs (12 hours) Temp Pulse Resp BP Pulse Ox 11/30/17 07:18 127 H 132/105 H 11/30/17 07:17 126 H 19 95 11/30/17 06:00 17 11/30/17 05:02 126/94 H 11/30/17 04:00 98.8 F 18 11/30/17 02:41 124 H 16 99 11/30/17 02:00 14 11/30/17 00:00 100.0 F H 18 126/94 H 11/29/17 22:46 130 H 13 98 11/29/17 22:00 12 Weight Admit Weight 208 lb Weight 225 lb 4.999 oz Most Recent Monitor Data Heart Rate from ECG 128 NIBP 151/98 NIBP BP-Mean 112 Respiration from ECG 20 SpO2 99 I&O: 11/29/17 11/30/17 12/01/17 06:59 06:59 06:59 Intake Total 1956 3065 Output Total 1453 2623 Balance 503 442 Result Diagrams: 12/01/17 05:38 12/01/17 05:38 Additional Labs: Microbiology 11/28/17 12:59 Venous blood - Left Hand Blood Culture - Preliminary Specimen has been received and culture in progress. No Growth to date. 11/28/17 12:56 Venous blood - Left Hand Blood Culture - Preliminary Specimen has been received and culture in progress. No Growth to date. 11/28/17 12:56 Urine michael catheter Urine Culture - Preliminary NO GROWTH AT 24 HOURS Laboratory Tests 11/26/17 11/27/17 11/28/17 10:30 06:35 06:55 ABG pH 7.48 H 7.46 H 7.50 H ABG pCO2 35.4 38.2 33.7 L ABG pO2 159.8 H 81.0 44.9 L* 11/29/17 11/30/17 06:50 07:22 ABG pH 7.47 H 7.48 H ABG pCO2 37.7 38.2 ABG pO2 73.8 L 64.4 L LABS REVIEWED Phys Exam - Physical Examination Constitutional: NAD intubated HEENT: moist MMs, sclera anicteric ETT,EVD Neck: no JVD Respiratory: no wheezing, no rales, no rhonchi reduced on R side Cardiovascular: RRR, no significant murmur tachy Gastrointestinal: soft, no distention, positive bowel sounds Musculoskeletal: no edema, pulses present left arm near cubital fossa is warm,red & indurated moves L side but hold R arm extended Deviation from normal: sedated Skin: no rash Dx/Plan (1) Sinus tachycardia Code(s): R00.0 - TACHYCARDIA, UNSPECIFIED Status: Acute Comment: Add BB per tube as BP also high (2) Fever Code(s): R50.9 - FEVER, UNSPECIFIED Status: Acute Comment: suspect aspiration PNA or cerebral fever from massive cerebral hemorrhage (3) ICH (intracerebral hemorrhage) Code(s): I61.9 - NONTRAUMATIC INTRACEREBRAL HEMORRHAGE, UNSPECIFIED Status: Acute Qualifiers: Intracerebral hemorrhage etiology: nontraumatic Comment: s/p EVD per NS (4) Hypertensive urgency Code(s): I16.0 - HYPERTENSIVE URGENCY Status: Acute Comment: better controlled on Cardene drip (5) Hypokalemia Code(s): E87.6 - HYPOKALEMIA Status: Acute Comment: on CCU electrolyte protocol (6) Chronic anticoagulation Code(s): Z79.01 - LONGTERM (CURRENT) USE OF ANTICOAGULANTS Status: Acute Comment: Xarelto on hold due to brain bleed (7) H/O: stroke Code(s): Z86.73 - PRSNL HX OF TIA (TIA), AND CEREB INFRC W/O RESID DEFICITS Status: Chronic Comment: h/o t-PA for same (8) Hyperparathyroidism Code(s): E21.3 - HYPERPARATHYROIDISM, UNSPECIFIED Status: Chronic Comment: s /p parathyroid removal (9) Hypertension Code(s): I10 - ESSENTIAL (PRIMARY) HYPERTENSION Status: Chronic - Plan plan discussed w/ family, michael catheter, continue antibiotics, PT/OT, DVT proph w/SCDs add BB and monitor.cont cardene drip as well -: empiric abx for fever.following Cx.all negative so far -: serial doppler .last one for LE negative.h/o factor 8 hypercaog state -: check UE US for DVt.not a acndidate for AC for now given extensive ICH -: cont supportive care. am labs.CXR improved atelectasis * . Review of Systems - Review of Systems Other: unobtainable due to intubated/sedated state - Medications/Allergies Allergies/Adverse Reactions: Allergies Allergy/AdvReac Type Severity Reaction Status Date / Time No Known Drug Allergies Allergy Verified 03/13/17 09:38 Medications: Current Medications Acetaminophen (Tylenol Elixir) 650 mg PO Q6H PRN PRN Reason: Fever Last Admin: 11/29/17 20:00 Dose: 650 mg Albuterol/Ipratropium (Duoneb) 3 ml NEB [id number] JEROMY Last Admin: 11/30/17 07:17 Dose: 3 ml Enalaprilat (Vasotec) 0.625 mg SLOW IVP Q6HR JEROMY Last Admin: 11/30/17 05:02 Dose: 0.625 mg Guaifenesin (Organ-I Nr) 400 mg PO Q4HR JEROMY Last Admin: 11/30/17 05:02 Dose: 400 mg Fentanyl Citrate 2,000 mcg/ (Sodium Chloride) 100 mls @ 0 mls/hr IV INF JEROMY; Per Protocol PRN Reason: Protocol Stop: 12/26/17 16:28 Fentanyl Citrate (Fentanyl Bolus) 250 mls @ 0 mls/hr IVPB PRN PRN; As Directed PRN Reason: Breakthrough pain/agitation Stop: 12/26/17 16:28 Nicardipine HCl 50 mg/ Sodium (Chloride) 250 mls @ 0 mls/hr IVPB INF JEROMY; Titrate PRN Reason: Protocol Last Admin: 11/30/17 05:02 Dose: 250 mls Potassium Chloride 40 meq/ (Sodium Chloride) 270 mls @ 135 mls/hr IVPB ASDIR PRN PRN Reason: FOR SERUM K+ 2.5 - 3.5 Potassium Chloride 40 meq/ (Device) 100 mls @ 50 mls/hr IVPB ASDIR PRN PRN Reason: FOR SERUM K+ 2.5 - 3.5 Magnesium Sulfate 1 gm/ Sodium (Chloride) 102 mls @ 102 mls/hr IV PRN PRN PRN Reason: MAG LEVEL 1.4 - 2.0 Magnesium Sulfate 2 gm/ Device 100 mls @ 100 mls/hr IVPB ASDIR PRN PRN Reason: MAGNESIUM < 1.4 Potassium Phosphate 9 mmol/ (Sodium Chloride) 103 mls @ 25.75 mls/hr IVPB ASDIR PRN PRN Reason: Phosphate 1.0-1.8 Potassium Phosphate 12 mmol/ (Sodium Chloride) 254 mls @ 63.5 mls/hr IV ASDIR PRN PRN Reason: Serum phosphate 0.5-0.9 Potassium Phosphate 15 mmol/ (Sodium Chloride) 255 mls @ 63.75 mls/hr IV ASDIR PRN PRN Reason: Serum Phos < 0.5 Ceftriaxone Sodium 2 gm/ (Sodium Chloride) 100 mls @ 200 mls/hr IVPB 1500 [facility] Last Admin: 11/29/17 14:21 Dose: 100 mls Vancomycin HCl 1 gm/ Device 200 mls @ 200 mls/hr IVPB 0400,1600 [facility] Last Admin: 11/30/17 05:02 Dose: 200 mls Lorazepam (Ativan) 2 mg SLOW IVP Q1H PRN PRN Reason: Breakthrough agitation Stop: 12/26/17 16:28 Last Admin: 11/27/17 21:36 Dose: 2 mg Magnesium Oxide (Magnesium Oxide) 400 mg PO BIDPRN PRN PRN Reason: FOR SERUM MAG 1.4 - 2.0 Magnesium Oxide (Magnesium Oxide) 800 mg PO PRN PRN PRN Reason: FOR SERUM MAG < 1.4 Metoprolol Tartrate (Lopressor) 12.5 mg PER TUBE BID [facility] Miscellaneous Medication (Phos-Nak) 1 pkt PO TIDPRN PRN PRN Reason: FOR PHOS LEVEL 1.0 - 1.8 Miscellaneous Medication (Phos-Nak) 2 pkt PO TIDPRN PRN PRN Reason: FOR PHOS LEVEL 0.5 - 1.0 Morphine Sulfate (Morphine) 2 mg SLOW IVP Q1H PRN PRN Reason: breakthrough pain/agitation Stop: 12/26/17 16:28 Last Admin: 11/29/17 23:59 Dose: 2 mg Discontinue Previous Narcotic Pain Medications And Benzodiazepines 1 each FS .ONE JEROMY Stop: 12/26/17 16:28 Ccu Electrolyte (Replacement Protocol) 0 each FS PRN PRN PRN Reason: FOR ELECTROLYTE REPLACEMENT Potassium Chloride (K-Dur) 40 meq PO ASDIR PRN PRN Reason: FOR SERUM K+ 2.5 - 3.5 Potassium Chloride (Klor-Con) 40 meq PER TUBE ASDIR PRN PRN Reason: FOR SERUM K+ 2.5-3.5 Last Admin: 11/29/17 08:29 Dose: 40 meq Propofol (Diprivan) 1,000 mg IV INF PRN; Protocol PRN Reason: TO ACHIEVE GOAL RASS Stop: 12/26/17 16:28 Last Admin: 11/30/17 00:00 Dose: 1,000 mg Propofol (Diprivan Bolus) 20 mg IV Q5MIN PRN PRN Reason: BREAKTHROUGH AGITATION Stop: 12/26/17 16:28
[2017-11-30] MEDS: Propofol 1,000 MG/100 ML VIAL IV PRN ×5 (09:55→22:00)
[2017-11-30] MEDS: Metoprolol Tartrate 25 MG TAB PER TUBE SCH ×2 (09:56→21:04)
--- NOTE | 2017-11-30 11:07 | ULT ---
LEFT UPPER EXTREMITY VENOUS ULTRASOUND WITH DOPPLER: History Left upper extremity erythema and redness. Edema. COMPARISON: None. TECHNIQUE: Romo scale, color flow, Doppler imaging with spectral waveform analysis was performed in the left upp er extremity venous system. FINDINGS: The left internal jugular vein and subclavian vein could not be evaluated due to patient being on the ventilator. There is thrombus without lack of flow in the left cephalic vein in the mid upper arm, slightly below the left antecubital fossa. The left axillary vein, brachial vein, basilic vein, radial vein, and lower cephalic vein are patent. There is flow in the ulnar vein. IMPRESSION: 1. Thrombus involving the proximal to mid left cephalic vein. 2. Further evaluation of the left internal jugular vein and subclavian vein due to ventilator equipm ent. POS: [facility]
--- NOTE | 2017-11-30 11:11 | PRG ---
DATE OF SERVICE: 11/30/2017 Ms. Collazo is hospital day 4 following admission for a large left thalamic hemorrhage on Xarelto with intraventricular extension and hydrocephalus with neurological decline. She is also being treated f or aspiration pneumonia. Her EVD has been opened at 0 cm of water and we will raise it to 10 cm of w ater today, it remains functioning with output of approximately 14 mL hourly. If she tolerates the r aising of the drain today we may consider raising it to 15 tomorrow. However, I would like to contin ue to see how she is doing when her sedation is weaned. She is very agitated and briskly moves the l eft side with extensor posturing on the right. Her eyes remain closed.
--- NOTE | 2017-11-30 13:21 | PRG ---
DATE OF SERVICE: 11/30/2017 SUBJECTIVE: Ms. Collazo is neurologically unchanged. She flexes on the left. I am told she extends on the right, but I have not seen that. OBJECTIVE: VITAL SIGNS: Stable. Heart rate is 103, blood pressure 130/90, low dose beta leif was started this morning, respiratory rate 13, oximetry is 99. LUNGS: Clear. HEART: Regular rate and rhythm. S1 and S2 are normal. ABDOMEN: Soft and nontender. EXTREMITIES: No clubbing, cyanosis or edema. LABORATORY DATA: PH 7.48, pCO2 38, pO2 of 64. Sodium 140, potassium 3.8, chloride 107, bicarb 23, BUN 15, creatinine 0.52. White count 9.8, hemoglobin 12.3, platelets 165,000. IMPRESSION: Status post parenchymal brain hemorrhage, clinically stable at this point in time. I have explained to the son that likely next week she will probably require tracheostomy once all the issues with her ventricular drain have stabilized. We will continue with supportive care. Clinically, atelectasis in the right is resolved. We will check radiograph again tomorrow probably. If her blood cultures remain negative at 48 hours, we will stop the vancomycin tomorrow. Critical care time 30 min. MTDD
[2017-11-30] MEDS: Diabetic Tussin 200 MG/10 ML UDCUP PO SCH ×3 (14:25→21:04)
[2017-11-30 15:50] LABS: Vancomycin, Trough 7.4 ug/mL
[2017-11-30] MEDS: cefTRIAXone\\ROCEPHIN 2 GM in Sodium Chloride 0.9% 100 ML IVPB SCH (15:54)
[2017-12-01] MEDS: Enalaprilat Dihydrate 1.25 MG/ML VIAL SLOW IVP SCH ×5 (00:08→23:20)
[2017-12-01] MEDS: Diabetic Tussin 200 MG/10 ML UDCUP PO SCH ×6 (00:10→20:45)
[2017-12-01] MEDS: Propofol 1,000 MG/100 ML VIAL IV PRN ×6 (02:34→23:06)
[2017-12-01] MEDS: Vancomycin HCl 1 GM in Premix Bag 1 BAG IVPB SCH ×2 (03:48→16:13)
[2017-12-01] MEDS: Labetalol HCl 100 MG/20 ML VIAL SLOW IVP PRN ×2 (03:49→14:17)
[2017-12-01 06:03] LABS: Actual Bicarbonate (HCO3a) 28.2 mEq/L (22-26); Base Excess (BEa) 4.1 mEq/L (0 (+/-) 2.5); CO2 Tension 40.3 mmHg (35.0-45.0); Hematocrit-ABG 36.5 % (36.0-47.0); O2 Tension (PaO2) 139.9 mmHg (80.0-100.0); pH, Arterial 7.46 (7.35-7.45)
[2017-12-01 06:04] LABS: Calcium, Ionized 1.2 mmol/L (1.12-1.30); Hemoglobin (Hb) 11.8 g/dL (12.0-16.0); Puncture Site LRA
[2017-12-01 06:05] LABS: ALV-art Gradient 130.575 (0-20)
[2017-12-01 06:12] LABS: #Basophils 0.1 thou/uL (0.0-0.2); #Eosinphils 0.7 thou/uL (0.0-0.7); #Lymphocytes 1.1 thou/uL (1.20-3.40); #Monocytes 0.6 thou/uL (0.11-0.59); %Basophils 0.6 % (0.0-1.0); %Eosinophils 8.1 % (0.0-10.0); %Lymphocytes 12.6 % (21.0-51.0); %Monocytes 7.4 % (0.0-10.0); %Neutrophils 71.3 % (42.0-75.0); Hemoglobin 12.8 g/dL (12.0-16.0); Mean Corpuscular Hemoglobin 29.4 pg (27.0-31.0); Mean Corpuscular Volume 86.4 fl (81.0-99.0); Mean Platelet Volume 10.1 fL (7.4-10.4); Platelet Count 165 thou/uL (130-400); RBC Distribution Width 12.5 % (11.5-14.5); Red Blood Cell (RBC) Count 4.35 mill/uL (4.20-5.40); White Blood Cell (WBC) Count 8.4 thou/uL (4.8-10.8)
[2017-12-01 06:41] LABS: Anion Gap 12 mmol/L (10-20); BUN (Urea Nitrogen) 13 mg/dL (9.8-20.1); Calc. Creatinine Clearance 178 mL/min (70-130); Calcium 9.1 mg/dL (7.8-10.44); Carbon Dioxide 28 mmol/L (22-29); Chloride 105 mmol/L (98-107); Estimated GFR-MDRD Greater than 90; Glucose 135 mg/dL (70-105); Potassium 3.3 mmol/L (3.5-5.1); Sodium 142 mmol/L (136-145)
--- NOTE | 2017-12-01 09:13 | ULT ---
PRELIMINARY REPORT/[facility]/EMERGENT[facility] AFTER-HOURS PROCEDURE US Duplex Bilateral Lower Extremity Veins EXAM DATE/TIME: 12/01/2017 2:28 AM CLINICAL HISTORY: Signs and symptoms and condition or disease; Embolism or thrombosis; Upper extremit y, left; Swelling of limb; Lower extremity, bilateral; Patient HX: Patient intubated, nonmobile TECHNIQUE: Real-time duplex ultrasound scan of the bilateral lower extremity veins integrating Bmode two-dimensional vascular structure, Doppler spectral analysis, color flow Doppler imaging and jacques rodney. COMPARISON: No relevant prior studies available. FINDINGS: Right deep veins: Unremarkable. No DVT in the right common femoral, femoral, proximal deep femoral, p opliteal or visualized calf veins. The veins demonstrate normal color flow, are normally compressible , with normal phasic flow and/or augmentation response. Right superficial veins: Unremarkable. No thrombus in the visualized right great saphenous vein. Left deep veins: Unremarkable. No DVT in the right common femoral, femoral, proximal deep femoral, po pliteal or visualized calf veins. The veins demonstrate normal color flow, are normally compressible, with normal phasic flow and/or augmentation response. Left superficial veins: Unremarkable. No thrombus in the visualized left great saphenous vein. Soft tissues: No acute findings. No popliteal cyst. IMPRESSION: Normal bilateral lower extremity duplex venous ultrasound. Thank you for allowing us to participate in the care of your patient. Dictated and Authenticated by: Teresa Sarabia MD 12/01/2017 4:22 AM Central Time ([place] & [place]) FINAL REPORT BILATERAL LOWER EXTREMITY VENOUS ULTRASOUND WITH DOPPLER: Date: 12/01/17 HISTORY: Bilateral lower extremity swelling and edema. COMPARISON: None. TECHNIQUE: Romo scale, color flow, Doppler imaging, and spectral waveform analysis performed of the left and rig ht lower extremity deep venous system. FINDINGS: This report is in agreement with the preliminary report by Samantha. No evidence of thrombus in the left or right lower extremity deep venous system. POS: OFF
--- NOTE | 2017-12-01 09:29 | PDOC.PN ---
- Subjective Encounter Start Date: 12/01/17 Encounter Start Time: 09:29 Subjective: remains intubated and sedated.no chnages overnight - Objective MAR Reviewed: Yes Vital Signs & Weight: Vital Signs (12 hours) Temp Pulse Resp BP Pulse Ox 12/01/17 08:31 81 147/98 H 12/01/17 06:00 12 12/01/17 05:54 84 124/82 12/01/17 05:52 90 12 100 12/01/17 05:05 125/68 12/01/17 04:00 99.3 F 12 12/01/17 03:49 103 H 150/102 H 12/01/17 02:31 96 12 99 12/01/17 02:00 12 12/01/17 00:08 144/86 H 12/01/17 00:00 100.2 F H 12 11/30/17 22:00 12 11/30/17 21:55 81 13 97 Weight Admit Weight 208 lb Weight 225 lb 4.999 oz Most Recent Monitor Data Heart Rate from ECG 94 NIBP 107/72 NIBP BP-Mean 87 Respiration from ECG 12 SpO2 100 I&O: 11/30/17 12/01/17 12/02/17 06:59 06:59 06:59 Intake Total 3065 1515 783 Output Total 2623 3322 Balance 442 -1803 783 Result Diagrams: 12/01/17 05:38 12/01/17 05:38 Additional Labs: Microbiology 11/28/17 12:56 Urine michael catheter Urine Culture - Final NO GROWTH AT 36 HOURS 11/28/17 12:59 Venous blood - Left Hand Blood Culture - Preliminary NO GROWTH AT 48 HOURS 11/28/17 12:56 Venous blood - Left Hand Blood Culture - Preliminary NO GROWTH AT 48 HOURS Radiology Reviewed by me: Yes (CXR-improved atelectasis on R) EKG Reviewed by me: Yes (sinus tachy on monitor) Phys Exam - Physical Examination Constitutional: NAD sedated.moves L arm but posturing noted HEENT: moist MMs, sclera anicteric, oral pharynx no lesions ETT,EVD Neck: no JVD Respiratory: no wheezing, no rales, no rhonchi, clear to auscultation bilateral improved aeration on right Dx/Plan (1) Sinus tachycardia Code(s): R00.0 - TACHYCARDIA, UNSPECIFIED Status: Acute Comment: added BB per tube yesterday as BP also high (2) Fever Code(s): R50.9 - FEVER, UNSPECIFIED Status: Acute Comment: suspect aspiration PNA or cerebral fever from massive cerebral hemorrhage (3) ICH (intracerebral hemorrhage) Code(s): I61.9 - NONTRAUMATIC INTRACEREBRAL HEMORRHAGE, UNSPECIFIED Status: Acute Qualifiers: Intracerebral hemorrhage etiology: nontraumatic Comment: s/p EVD per NS (4) Hypertensive urgency Code(s): I16.0 - HYPERTENSIVE URGENCY Status: Acute Comment: better controlled on Cardene drip (5) Hypokalemia Code(s): E87.6 - HYPOKALEMIA Status: Acute Comment: on CCU electrolyte protocol (6) Chronic anticoagulation Code(s): Z79.01 - DETENTION (CURRENT) USE OF ANTICOAGULANTS Status: Acute Comment: Xarelto on hold due to brain bleed (7) H/O: stroke Code(s): Z86.73 - PRSNL HX OF TIA (TIA), AND CEREB INFRC W/O RESID DEFICITS Status: Chronic Comment: h/o t-PA for same (8) Hyperparathyroidism Code(s): E21.3 - HYPERPARATHYROIDISM, UNSPECIFIED Status: Chronic Comment: s /p parathyroid removal (9) Hypertension Code(s): I10 - ESSENTIAL (PRIMARY) HYPERTENSION Status: Chronic (10) Factor 8 level High Status: Chronic Comment: Discussed w Pt's PCP and Voltage Inspector Dr. Romo - Plan michael catheter, continue antibiotics, respiratory therapy, DVT proph w/SCDs if HR remains high,will increase BB.cont cardene drip per primary team -: may need repeat CT to evaluate neurological status ?herniation -: vent support per PCCM.EVD per NS team -: guarded prognosis -: following Cx-all negative so far.am labs * . Review of Systems - Review of Systems Other: can not be obtained due to sedated and intubated state - Medications/Allergies Allergies/Adverse Reactions: Allergies Allergy/AdvReac Type Severity Reaction Status Date / Time No Known Drug Allergies Allergy Verified 03/13/17 09:38 Medications: Current Medications Acetaminophen (Tylenol Elixir) 650 mg PO Q6H PRN PRN Reason: Fever Last Admin: 11/29/17 20:00 Dose: 650 mg Albuterol/Ipratropium (Duoneb) 3 ml NEB Q0CS-IZ JEROMY Last Admin: 12/01/17 05:52 Dose: 3 ml Enalaprilat (Vasotec) 0.625 mg SLOW IVP Q6HR JEROMY Last Admin: 12/01/17 05:05 Dose: 0.625 mg Guaifenesin (Robitussin Sf) 400 mg PO Q4HR JEORMY Last Admin: 12/01/17 05:05 Dose: 400 mg Fentanyl Citrate 2,000 mcg/ (Sodium Chloride) 100 mls @ 0 mls/hr IV INF JEROMY; Per Protocol PRN Reason: Protocol Stop: 12/26/17 16:28 Fentanyl Citrate (Fentanyl Bolus) 250 mls @ 0 mls/hr IVPB PRN PRN; As Directed PRN Reason: Breakthrough pain/agitation Stop: 12/26/17 16:28 Nicardipine HCl 50 mg/ Sodium (Chloride) 250 mls @ 0 mls/hr IVPB INF JEROMY; Titrate PRN Reason: Protocol Last Admin: 11/30/17 16:38 Dose: 250 mls Potassium Chloride 40 meq/ (Sodium Chloride) 270 mls @ 135 mls/hr IVPB ASDIR PRN PRN Reason: FOR SERUM K+ 2.5 - 3.5 Potassium Chloride 40 meq/ (Device) 100 mls @ 50 mls/hr IVPB ASDIR PRN PRN Reason: FOR SERUM K+ 2.5 - 3.5 Magnesium Sulfate 1 gm/ Sodium (Chloride) 102 mls @ 102 mls/hr IV PRN PRN PRN Reason: MAG LEVEL 1.4 - 2.0 Magnesium Sulfate 2 gm/ Device 100 mls @ 100 mls/hr IVPB ASDIR PRN PRN Reason: MAGNESIUM < 1.4 Potassium Phosphate 9 mmol/ (Sodium Chloride) 103 mls @ 25.75 mls/hr IVPB ASDIR PRN PRN Reason: Phosphate 1.0-1.8 Potassium Phosphate 12 mmol/ (Sodium Chloride) 254 mls @ 63.5 mls/hr IV ASDIR PRN PRN Reason: Serum phosphate 0.5-0.9 Potassium Phosphate 15 mmol/ (Sodium Chloride) 255 mls @ 63.75 mls/hr IV ASDIR PRN PRN Reason: Serum Phos < 0.5 Ceftriaxone Sodium 2 gm/ (Sodium Chloride) 100 mls @ 200 mls/hr IVPB 1500 [facility] Last Admin: 11/30/17 15:54 Dose: 100 mls Vancomycin HCl 1 gm/ Device 200 mls @ 200 mls/hr IVPB 0400,1600 [facility] Last Admin: 12/01/17 03:48 Dose: 200 mls Labetalol HCl (Normodyne) 10 mg SLOW IVP Q1H PRN PRN Reason: Systolic BP > 150 Last Admin: 12/01/17 03:49 Dose: 10 mg Lorazepam (Ativan) 2 mg SLOW IVP Q1H PRN PRN Reason: Breakthrough agitation Stop: 12/26/17 16:28 Last Admin: 11/27/17 21:36 Dose: 2 mg Magnesium Oxide (Magnesium Oxide) 400 mg PO BIDPRN PRN PRN Reason: FOR SERUM MAG 1.4 - 2.0 Magnesium Oxide (Magnesium Oxide) 800 mg PO PRN PRN PRN Reason: FOR SERUM MAG < 1.4 Metoprolol Tartrate (Lopressor) 12.5 mg PER TUBE BID [facility] Last Admin: 11/30/17 21:04 Dose: 12.5 mg Miscellaneous Medication (Phos-Nak) 1 pkt PO TIDPRN PRN PRN Reason: FOR PHOS LEVEL 1.0 - 1.8 Miscellaneous Medication (Phos-Nak) 2 pkt PO TIDPRN PRN PRN Reason: FOR PHOS LEVEL 0.5 - 1.0 Morphine Sulfate (Morphine) 2 mg SLOW IVP Q1H PRN PRN Reason: breakthrough pain/agitation Stop: 12/26/17 16:28 Last Admin: 11/29/17 23:59 Dose: 2 mg Discontinue Previous Narcotic Pain Medications And Benzodiazepines 1 each FS .ONE [facility] Stop: 12/26/17 16:28 Ccu Electrolyte (Replacement Protocol) 0 each FS PRN PRN PRN Reason: FOR ELECTROLYTE REPLACEMENT Potassium Chloride (K-Dur) 40 meq PO ASDIR PRN PRN Reason: FOR SERUM K+ 2.5 - 3.5 Potassium Chloride (Klor-Con) 40 meq PER TUBE ASDIR PRN PRN Reason: FOR SERUM K+ 2.5-3.5 Last Admin: 11/29/17 08:29 Dose: 40 meq Propofol (Diprivan) 1,000 mg IV INF PRN; Protocol PRN Reason: TO ACHIEVE GOAL RASS Stop: 12/26/17 16:28 Last Admin: 12/01/17 06:48 Dose: 1,000 mg Propofol (Diprivan Bolus) 20 mg IV Q5MIN PRN PRN Reason: BREAKTHROUGH AGITATION Stop: 12/26/17 16:28
[2017-12-01] MEDS: Metoprolol Tartrate 25 MG TAB PER TUBE SCH ×2 (09:35→20:44)
--- NOTE | 2017-12-01 09:36 | RAD ---
CHEST 1 VIEW: HISTORY: Dyspnea. Followup. COMPARISON: 11/29/17. FINDINGS: Cardiac silhouette is magnified. Pulmonary vasculature is engorged with mild bilateral perihilar inf iltrates. Right basilar infiltrate is less pronounced. The patient is slightly rotated rightward. Lines and tubes appear unchanged in position. Calcified granulomata are consistent with healed granu lomatous disease. No evidence of pneumothorax. IMPRESSION: 1. Improved aeration of the right lung base. 2. Pulmonary edema and other findings are otherwise stable. POS: [facility]
--- NOTE | 2017-12-01 14:08 | PRG ---
DATE OF SERVICE: 12/01/2017 Michael Godinez PA-C, dictating for Dr. Dom Ruvalcaba. Ms. Collazo is now hospital day 5, having hypertensive bleed with EVD placement. We have raised the d rain to 10 cm of water overnight and the patient's neurologic exam remains at baseline. She quickly withdraws the left leg. She quickly withdraws the left lower extremity and the left upper extremity will move spontaneously. She has weak withdrawal in the right upper and right lower extremities. Sh dmitry is on propofol sedation. Ultrasound of the left upper extremity was done showing superficial throm bosis in the left cephalic vein. We will use warm compresses on this. Unfortunately, the patient is not a candidate for anticoagulants at this time. We did obtain bilateral lower extremity ultrasound s that was negative for bilateral lower extremity DVT. We will do serial ultrasound of the bilateral lower extremities every 3 days and this has been ordered. We will leave the drain at 10 cm of water and monitor the output. At this time, it has ranged over the last 12 hours from 5-20 which is sligh tly more than what it was when it was set at 0. Her ICPs have remained around 7-13 mmHg. She has re mained afebrile and white blood cell count is trending downward with the initiation of antibiotics by our medical team. The patient's family was updated at bedside and they are pleased with her progres s. We will continue her EVD and hope to wean may be as early as Monday. Please call with any questi ons or changes in patient's neurologic status.
[2017-12-01] MEDS: cefTRIAXone\\ROCEPHIN 2 GM in Sodium Chloride 0.9% 100 ML IVPB SCH (15:05)
[2017-12-01] MEDS: niCARdipine HCl 50 MG in Sodium Chloride 0.9% 250 ML 230 ML IVPB SCH ×2 (15:06→23:15)
[2017-12-01] MEDS: Acetaminophen 650 MG/20.3 ML UDCUP PO PRN ×2 (16:30→23:20)
--- NOTE | 2017-12-01 23:46 | PRG ---
DATE OF SERVICE: 12/01/2017 SUBJECTIVE: Ms. Collazo is neurologically unchanged. Her hemodynamics has been stable. She has a te mperature up to 101.2 today, heart rate 85. Blood pressure has been stable. Cultures show no eviden ce of MRSA, so vancomycin has been discontinued. Intake and output is negative 1806. OBJECTIVE: LUNGS: Clear. HEART: Regular rhythm. S1 and S2 are normal. ABDOMEN: Soft and nontender. EXTREMITIES: No clubbing, cyanosis, or edema. NEUROLOGIC: Unchanged. LABORATORY DATA: White count 8.4, hemoglobin 12.8, platelets 165,000. Sodium 142, potassium 3.3, ch loride 105, bicarbonate 20, BUN 13, creatinine 0.55, pH 7.46, CO2 of 40, pO2 of 139. IMPRESSION: Hemorrhagic cerebrovascular accident. PLAN: Continue supportive care with ventricular drain per Neurosurgery. Her ventricular drainage ov ernight was 318 mL. It is very likely tracheostomy next week and PEG placement. Critical care time was 30 minutes.
[2017-12-02] MEDS: Diabetic Tussin 200 MG/10 ML UDCUP PO SCH ×5 (01:08→20:37)
[2017-12-02] MEDS: niCARdipine HCl 50 MG in Sodium Chloride 0.9% 250 ML 230 ML IVPB SCH ×3 (03:31→17:14)
[2017-12-02] MEDS: Propofol 1,000 MG/100 ML VIAL IV PRN ×5 (03:31→20:36)
[2017-12-02] MEDS: Labetalol HCl 100 MG/20 ML VIAL SLOW IVP PRN ×2 (04:01→23:48)
[2017-12-02] MEDS: Morphine 4 MG/ML VIAL SLOW IVP PRN (04:42)
[2017-12-02] MEDS: Enalaprilat Dihydrate 1.25 MG/ML VIAL SLOW IVP SCH ×2 (05:44→13:14)
[2017-12-02 06:00] LABS: #Basophils 0.1 thou/uL (0.0-0.2); #Eosinphils 0.7 thou/uL (0.0-0.7); #Lymphocytes 1.1 thou/uL (1.20-3.40); #Neutrophils 6.9 thou/uL (1.40-6.50); %Basophils 0.6 % (0.0-1.0); %Eosinophils 7.4 % (0.0-10.0); %Lymphocytes 11.5 % (21.0-51.0); %Monocytes 9.8 % (0.0-10.0); %Neutrophils 70.8 % (42.0-75.0); Hemoglobin 12.5 g/dL (12.0-16.0); Mean Corpuscular HGB CONC 33.5 g/dL (32.0-36.0); Mean Corpuscular Hemoglobin 29.1 pg (27.0-31.0); Mean Corpuscular Volume 86.9 fl (81.0-99.0); Mean Platelet Volume 9.8 fL (7.4-10.4); Platelet Count 195 thou/uL (130-400); RBC Distribution Width 12.4 % (11.5-14.5); Red Blood Cell (RBC) Count 4.31 mill/uL (4.20-5.40); White Blood Cell (WBC) Count 9.7 thou/uL (4.8-10.8)
[2017-12-02 06:14] LABS: Anion Gap 11 mmol/L (10-20); BUN (Urea Nitrogen) 17 mg/dL (9.8-20.1); Calc. Creatinine Clearance 187 mL/min (70-130); Calcium 8.9 mg/dL (7.8-10.44); Carbon Dioxide 26 mmol/L (22-29); Chloride 106 mmol/L (98-107); Estimated GFR-MDRD Greater than 90; Glucose 115 mg/dL (70-105); Potassium 3.7 mmol/L (3.5-5.1); Sodium 139 mmol/L (136-145)
[2017-12-02 07:31] LABS: Actual Bicarbonate (HCO3a) 27.8 mEq/L (22-26); Base Excess (BEa) 3.2 mEq/L (0 (+/-) 2.5); CO2 Tension 42.2 mmHg (35.0-45.0); Hematocrit-ABG 35.5 % (36.0-47.0); Hemoglobin (Hb) 11.8 g/dL (12.0-16.0); O2 Tension (PaO2) 82.2 mmHg (80.0-100.0); pH, Arterial 7.44 (7.35-7.45)
[2017-12-02 07:32] LABS: Calcium, Ionized 1.2 mmol/L (1.12-1.30); Puncture Site LR
[2017-12-02] MEDS: Metoprolol Tartrate 25 MG TAB PER TUBE SCH ×2 (09:20→20:34)
--- NOTE | 2017-12-02 09:31 | RAD ---
ONE VIEW CHEST: COMPARISON: 12/01/17. HISTORY: Ventilated patient. Respiratory distress. FINDINGS: Stable ET and NG tubes. Persistent opacification of the lung bases. Stable configuration of the car diac silhouette. No pneumothorax. IMPRESSION: No significant change. POS: [facility]
[2017-12-02] MEDS ORDERED: Milk Of Magnesia 30 ML UDCUP PO PRN (15:25)
[2017-12-02] MEDS ORDERED: Bisacodyl 10 MG SUPP PR PRN (15:25)
[2017-12-02] MEDS: cefTRIAXone\\ROCEPHIN 2 GM in Sodium Chloride 0.9% 100 ML IVPB SCH (15:26)
--- NOTE | 2017-12-02 15:27 | PDOC.PN ---
- Subjective Encounter Start Date: 12/02/17 Encounter Start Time: 15:26 Subjective: no changes overnight.remains vent dependent - Objective MAR Reviewed: Yes Vital Signs & Weight: Vital Signs (12 hours) Temp Pulse Resp BP Pulse Ox 12/02/17 14:00 13 12/02/17 13:14 145/75 H 12/02/17 12:55 70 145/75 H 12/02/17 12:00 100.7 F H 13 12/02/17 11:07 67 103/65 12/02/17 10:00 12 12/02/17 08:00 99.9 F H 79 12 100 12/02/17 06:59 82 140/69 12/02/17 05:51 12 12/02/17 05:44 146/73 H 12/02/17 04:01 89 187/77 H 12/02/17 04:00 99.5 F 12 Weight Admit Weight 208 lb Weight 232 lb 12.93 oz Most Recent Monitor Data Heart Rate from ECG 84 NIBP 150/77 NIBP BP-Mean 90 Respiration from ECG 19 SpO2 99 I&O: 12/01/17 12/02/17 12/03/17 06:59 06:59 06:59 Intake Total 1515 3443 90 Output Total 3322 2775 662 Balance -1807 598 -832 Result Diagrams: 12/02/17 05:07 12/02/17 05:07 Additional Labs: Microbiology 11/28/17 12:56 Urine michael catheter Urine Culture - Final NO GROWTH AT 36 HOURS 11/28/17 12:59 Venous blood - Left Hand Blood Culture - Preliminary NO GROWTH AT 48 HOURS 11/28/17 12:56 Venous blood - Left Hand Blood Culture - Preliminary NO GROWTH AT 48 HOURS LABS REVIEWED Phys Exam - Physical Examination Constitutional: NAD intubated HEENT: moist MMs, sclera anicteric ett ,evd in place Neck: no JVD Respiratory: no wheezing, no rales, no rhonchi, clear to auscultation bilateral Cardiovascular: RRR, no significant murmur, no rub Gastrointestinal: soft, no distention, positive bowel sounds Musculoskeletal: no edema, pulses present sedated.moves left arm sedated Skin: no rash Dx/Plan (1) Sinus tachycardia Code(s): R00.0 - TACHYCARDIA, UNSPECIFIED Status: Acute Comment: cont BB per tube .HR better controlled now (2) Fever Code(s): R50.9 - FEVER, UNSPECIFIED Status: Acute Comment: suspect aspiration PNA or cerebral fever from massive cerebral hemorrhage (3) ICH (intracerebral hemorrhage) Code(s): I61.9 - NONTRAUMATIC INTRACEREBRAL HEMORRHAGE, UNSPECIFIED Status: Acute Qualifiers: Intracerebral hemorrhage etiology: nontraumatic Comment: s/p EVD per NS (4) Hypertensive urgency Code(s): I16.0 - HYPERTENSIVE URGENCY Status: Acute Comment: better controlled on Cardene drip (5) Hypokalemia Code(s): E87.6 - HYPOKALEMIA Status: Acute Comment: on CCU electrolyte protocol (6) Chronic anticoagulation Code(s): Z79.01 - [employer] (CURRENT) USE OF ANTICOAGULANTS Status: Acute Comment: Xarelto on hold due to brain bleed (7) H/O: stroke Code(s): Z86.73 - PRSNL HX OF TIA (TIA), AND CEREB INFRC W/O RESID DEFICITS Status: Chronic Comment: h/o t-PA for same (8) Hyperparathyroidism Code(s): E21.3 - HYPERPARATHYROIDISM, UNSPECIFIED Status: Chronic Comment: s /p parathyroid removal (9) Hypertension Code(s): I10 - ESSENTIAL (PRIMARY) HYPERTENSION Status: Chronic (10) Factor 8 level High Status: Chronic Comment: Discussed w Pt's PCP and Oven Worker Dr. Romo - Plan continue antibiotics, PT/OT, respiratory therapy, DVT proph w/SCDs empiric ABx.follow Cx -: add prn laxatives. -: Cont BB .increase as pt still needing cardene drip -: NS following.S/P EVD.monitoring pressure -: vent per PCCM * . Review of Systems - Review of Systems Other: can not be obtained due to intubated/sedated state - Medications/Allergies Allergies/Adverse Reactions: Allergies Allergy/AdvReac Type Severity Reaction Status Date / Time No Known Drug Allergies Allergy Verified 03/13/17 09:38 Medications: Current Medications Acetaminophen (Tylenol Elixir) 650 mg PO Q6H PRN PRN Reason: Fever Last Admin: 12/01/17 23:20 Dose: 650 mg Albuterol/Ipratropium (Duoneb) 3 ml NEB [id number] JEROMY Last Admin: 12/02/17 15:22 Dose: 3 ml Bisacodyl (Dulcolax) 10 mg NC Q8H PRN PRN Reason: Constipation Enalaprilat (Vasotec) 0.625 mg SLOW IVP Q6HR [facility] Last Admin: 12/02/17 13:14 Dose: 0.625 mg Guaifenesin (Robitussin Sf) 400 mg PO Q8HR JEROMY Last Admin: 12/02/17 15:26 Dose: 400 mg Fentanyl Citrate 2,000 mcg/ (Sodium Chloride) 100 mls @ 0 mls/hr IV INF JEROMY; Per Protocol PRN Reason: Protocol Stop: 12/26/17 16:28 Fentanyl Citrate (Fentanyl Bolus) 250 mls @ 0 mls/hr IVPB PRN PRN; As Directed PRN Reason: Breakthrough pain/agitation Stop: 12/26/17 16:28 Nicardipine HCl 50 mg/ Sodium (Chloride) 250 mls @ 0 mls/hr IVPB INF JEROMY; Titrate PRN Reason: Protocol Last Admin: 12/02/17 07:33 Dose: 250 mls Potassium Chloride 40 meq/ (Sodium Chloride) 270 mls @ 135 mls/hr IVPB ASDIR PRN PRN Reason: FOR SERUM K+ 2.5 - 3.5 Potassium Chloride 40 meq/ (Device) 100 mls @ 50 mls/hr IVPB ASDIR PRN PRN Reason: FOR SERUM K+ 2.5 - 3.5 Magnesium Sulfate 1 gm/ Sodium (Chloride) 102 mls @ 102 mls/hr IV PRN PRN PRN Reason: MAG LEVEL 1.4 - 2.0 Magnesium Sulfate 2 gm/ Device 100 mls @ 100 mls/hr IVPB ASDIR PRN PRN Reason: MAGNESIUM < 1.4 Potassium Phosphate 9 mmol/ (Sodium Chloride) 103 mls @ 25.75 mls/hr IVPB ASDIR PRN PRN Reason: Phosphate 1.0-1.8 Potassium Phosphate 12 mmol/ (Sodium Chloride) 254 mls @ 63.5 mls/hr IV ASDIR PRN PRN Reason: Serum phosphate 0.5-0.9 Potassium Phosphate 15 mmol/ (Sodium Chloride) 255 mls @ 63.75 mls/hr IV ASDIR PRN PRN Reason: Serum Phos < 0.5 Ceftriaxone Sodium 2 gm/ (Sodium Chloride) 100 mls @ 200 mls/hr IVPB 1500 [facility] Last Admin: 12/02/17 15:26 Dose: 100 mls Labetalol HCl (Normodyne) 10 mg SLOW IVP Q1H PRN PRN Reason: Systolic BP > 150 Last Admin: 12/02/17 04:01 Dose: 10 mg Lorazepam (Ativan) 2 mg SLOW IVP Q1H PRN PRN Reason: Breakthrough agitation Stop: 12/26/17 16:28 Last Admin: 11/27/17 21:36 Dose: 2 mg Magnesium Hydroxide (Milk Of Magnesium) 30 ml PO DAILYPRN PRN PRN Reason: Constipation Magnesium Oxide (Magnesium Oxide) 400 mg PO BIDPRN PRN PRN Reason: FOR SERUM MAG 1.4 - 2.0 Magnesium Oxide (Magnesium Oxide) 800 mg PO PRN PRN PRN Reason: FOR SERUM MAG < 1.4 Metoprolol Tartrate (Lopressor) 12.5 mg PER TUBE BID [facility] Last Admin: 12/02/17 09:20 Dose: 12.5 mg Miscellaneous Medication (Phos-Nak) 1 pkt PO TIDPRN PRN PRN Reason: FOR PHOS LEVEL 1.0 - 1.8 Miscellaneous Medication (Phos-Nak) 2 pkt PO TIDPRN PRN PRN Reason: FOR PHOS LEVEL 0.5 - 1.0 Morphine Sulfate (Morphine) 2 mg SLOW IVP Q1H PRN PRN Reason: breakthrough pain/agitation Stop: 12/26/17 16:28 Last Admin: 12/02/17 04:42 Dose: 2 mg Discontinue Previous Narcotic Pain Medications And Benzodiazepines 1 each FS .ONE [facility] Stop: 12/26/17 16:28 Ccu Electrolyte (Replacement Protocol) 0 each FS PRN PRN PRN Reason: FOR ELECTROLYTE REPLACEMENT Potassium Chloride (K-Dur) 40 meq PO ASDIR PRN PRN Reason: FOR SERUM K+ 2.5 - 3.5 Potassium Chloride (Klor-Con) 40 meq PER TUBE ASDIR PRN PRN Reason: FOR SERUM K+ 2.5-3.5 Last Admin: 12/02/17 06:25 Dose: 40 meq Propofol (Diprivan) 1,000 mg IV INF PRN; Protocol PRN Reason: TO ACHIEVE GOAL RASS Stop: 12/26/17 16:28 Last Admin: 12/02/17 14:26 Dose: 1,000 mg Propofol (Diprivan Bolus) 20 mg IV Q5MIN PRN PRN Reason: BREAKTHROUGH AGITATION Stop: 12/26/17 16:28
[2017-12-02] MEDS: Lisinopril 10 MG TAB PER TUBE SCH (20:34)
--- NOTE | 2017-12-02 21:10 | PRG ---
DATE OF SERVICE: 12/02/2017 SUBJECTIVE: Ms. Collazo is unchanged neurologically. Hemodynamics remain stable. OBJECTIVE: VITAL SIGNS: Blood pressure is 145/75, heart rate is in the 70s, respiratory rate is in the teens, temperature is 100.7. LUNGS: Clear. HEART: Regular rhythm. ABDOMEN: Soft. She is still hazy at her right base. Cultures are negative. LABORATORY DATA: White count 9.7, hemoglobin 12.5, platelets 195,000. Electrolytes are normal. Creatinine is 0.54. IMPRESSION AND PLAN: 1. Respiratory failure after a hemorrhagic cerebrovascular accident. 2. Atelectasis, both lung bases, improved dramatically with mucolytics and nebulizer treatments. 3. Temperature elevation. At this point in time, clinically feel that she has pneumonia. We will continue with antimicrobial therapy for now. Intake and output reviewed, she is positive 668 mL. Retain nutritional support. She is having bowel movements. She will probably need tracheostomy and PEG early next week. Critical care time 30 minutes. MTDD
[2017-12-03] MEDS: Propofol 1,000 MG/100 ML VIAL IV PRN ×4 (03:13→22:45)
[2017-12-03] MEDS: niCARdipine HCl 50 MG in Sodium Chloride 0.9% 250 ML 230 ML IVPB SCH ×3 (03:13→22:45)
[2017-12-03 05:06] LABS: #Basophils 0.1 thou/uL (0.0-0.2); #Eosinphils 0.7 thou/uL (0.0-0.7); #Lymphocytes 1.5 thou/uL (1.20-3.40); #Monocytes 0.9 thou/uL (0.11-0.59); #Neutrophils 7.5 thou/uL (1.40-6.50); %Basophils 0.8 % (0.0-1.0); %Eosinophils 6.6 % (0.0-10.0); %Lymphocytes 13.8 % (21.0-51.0); %Monocytes 8.8 % (0.0-10.0); %Neutrophils 70.1 % (42.0-75.0); Hemoglobin 12.9 g/dL (12.0-16.0); Mean Corpuscular HGB CONC 32.7 g/dL (32.0-36.0); Mean Corpuscular Hemoglobin 28.6 pg (27.0-31.0); Mean Corpuscular Volume 87.3 fl (81.0-99.0); Mean Platelet Volume 8.9 fL (7.4-10.4); Platelet Count 223 thou/uL (130-400); RBC Distribution Width 12.6 % (11.5-14.5); White Blood Cell (WBC) Count 10.6 thou/uL (4.8-10.8)
[2017-12-03 05:26] LABS: Anion Gap 11 mmol/L (10-20); BUN (Urea Nitrogen) 17 mg/dL (9.8-20.1); Calc. Creatinine Clearance 187 mL/min (70-130); Calcium 9.1 mg/dL (7.8-10.44); Carbon Dioxide 26 mmol/L (22-29); Chloride 108 mmol/L (98-107); Estimated GFR-MDRD Greater than 90; Glucose 121 mg/dL (70-105); Potassium 3.9 mmol/L (3.5-5.1); Sodium 141 mmol/L (136-145)
[2017-12-03 07:31] LABS: Actual Bicarbonate (HCO3a) 27.6 mEq/L (22-26); Base Excess (BEa) 3.4 mEq/L (0 (+/-) 2.5); CO2 Tension 40.5 mmHg (35.0-45.0); Hematocrit-ABG 35.8 % (36.0-47.0); Hemoglobin (Hb) 11.7 g/dL (12.0-16.0); O2 Tension (PaO2) 81.4 mmHg (80.0-100.0); pH, Arterial 7.45 (7.35-7.45)
[2017-12-03 07:32] LABS: ALV-art Gradient 151.175 (0-20); Calcium, Ionized 1.2 mmol/L (1.12-1.30); Puncture Site LR
[2017-12-03] MEDS: Acetaminophen 650 MG/20.3 ML UDCUP PO PRN (07:50)
[2017-12-03] MEDS: Diabetic Tussin 200 MG/10 ML UDCUP PO SCH ×3 (07:50→21:48)
[2017-12-03] MEDS: Metoprolol Tartrate 25 MG TAB PER TUBE SCH ×2 (10:54→21:48)
[2017-12-03] MEDS: Lisinopril 10 MG TAB PER TUBE SCH ×2 (10:54→21:48)
--- NOTE | 2017-12-03 11:44 | RAD ---
PORTABLE AP CHEST XRAY: DATE: 12/03/17. History On ventilator. COMPARISON: 12/02/17. FINDINGS: Endotracheal tube and nasogastric tubes remain in place and unchanged in position. Cardiac silhouett e is magnified by projection but is at the upper limits of normal in size. Again noted is increased hazy opacity at the right lung base which may be related to either atelectasis or pneumonia. The lef t lung is clear. Thoracic aorta is ectatic. No other interval change. IMPRESSION: 1. Persistent opacity at the right lung base which could be related to either atelectasis or pneumon ia. Continued followup to resolution recommended. 2. Lines and tubes stable in position. POS: [facility]
--- NOTE | 2017-12-03 13:38 | PRG ---
DATE OF SERVICE: 12/03/2017 Yeny Collazo is essentially unchanged. Temperature maximum was 100.7 yesterday at noon. Cultures have again been reviewed and are negative, both urine and blood. Chest radiograph was reviewed this morning. She is hazy at her right base, more so than her left. I have recommended that we culture her sputum, although at this point she may have endotracheal tube colonization. Her lungs are clear. Heart, regular rhythm. S1 and S2 are normal. Abdomen is soft and nontender. Extremities without edema. She still moves her left side when she is not sedated. She is not waking up and following commands. White count 10.6, hemoglobin 12.9, platelets 223. Sodium 141, potassium 3.9, chloride 108, bicarbonate 26, BUN 17, creatinine 0.54. pH 7.5, CO2 of 40, pO2 of 81. IMPRESSION: 1. Intracranial hemorrhage. 2. Respiratory failure secondary to #1. 3. Fever. PLAN: Cultures are negative. We will continue supportive care and current antimicrobial therapy. I will probably discontinue cefepime after 5 days. There is nothing to suggest she has a deep vein th , but I will order a venogram for tomorrow morning via Doppler. Met with family and answered a ll their questions. I will probably consult Surgery for tracheostomy and PEG tomorrow morning to be done at their convenience. Critical care time was 30 minutes.
[2017-12-03] MEDS: Labetalol HCl 100 MG/20 ML VIAL SLOW IVP PRN (14:42)
[2017-12-03] MEDS: cefTRIAXone\\ROCEPHIN 2 GM in Sodium Chloride 0.9% 100 ML IVPB SCH (14:51)
--- NOTE | 2017-12-03 19:40 | PRG ---
DATE OF SERVICE: 12/03/2017 SUBJECTIVE: The patient is seen and examined at bedside. She is in ICU bed #383. She is intubated and sedated. OBJECTIVE: VITAL SIGNS: Blood pressure is 149/76, pulse is 78, respiratory rate is 17, and her pulse oximetry i s 98%, her temperature was low grade. GENERAL: She is sedated with propofol. LUNGS: Clear. HEART: S1, S2 normal, no S3, no S4, no murmur. ABDOMEN: Soft, bowel sounds are present, no organomegaly. EXTREMITIES: No clubbing, cyanosis or edema. NEUROLOGIC: Postponed since she is sedated. LABORATORY DATA: Showed white count of 10.6, hemoglobin 12.9, hematocrit 39.3, platelet count is 23, 000. Chemistry showed a sodium of 141, potassium 3.9, chloride 108, CO2 of 28, BUN 17, creatinine 0. 54. ABGs showed pH of 7.45, pCO2 of 48.5, pO2 of 81.4 and bicarbonate 27.6. Microbiology showed Blo od cultures negative x2. Urine culture is negative x1. Respiratory culture preliminary shows 0-5 ep ithelial cells per lower power field, moderate WBCs seen, many gram negative rods, moderate gram posi tive cocci in pairs, moderate gram positive rods and few gram positive cocci in clusters. We should have more information about this culture tomorrow morning. Chest x-ray was done this morning and it showed changes in the right lung base which was read as possible atelectasis or pneumonia by radiolog ist. IMPRESSION AND PLAN: 1. Low-grade fever. Gram stain of sputum showed some changes. We are waiting for the final report on her culture. She is on ceftriaxone and at this point, we are going to continue that. 2. Intracerebral hemorrhage, nontraumatic, status post EVD per Neurosurgery. 3. Hypertensive urgency. Patient's blood pressure is better controlled with Cardene drip, but she s till requires labetalol on and off. Her systolic blood pressure is supposed to be kept below 140. I ntensivist is managing her pulmonary status and most likely she will have tracheostomy and PEG tube p lacement tomorrow on Monday. 4. She was on chronic anticoagulation prior to this event and her Xarelto obviously was stopped. 5. History of stroke. 6. Hyperparathyroidism status post parathyroid removal. 7. Hypertension. As mentioned above. 8. Factor 8 level high Plan is to continue her antibiotics, continue PT, OT respiratory therapy. Use labetalol p.r.n. for t he blood count control. Continue Cardene drip and most likely General Surgery will be called for tra cheostomy and PEG tube placement.
[2017-12-04] MEDS: Propofol 1,000 MG/100 ML VIAL IV PRN ×2 (02:46→06:59)
[2017-12-04 05:53] LABS: Anion Gap 11 mmol/L (10-20); BUN (Urea Nitrogen) 18 mg/dL (9.8-20.1); Calc. Creatinine Clearance 191 mL/min (70-130); Calcium 8.8 mg/dL (7.8-10.44); Carbon Dioxide 26 mmol/L (22-29); Chloride 105 mmol/L (98-107); Estimated GFR-MDRD Greater than 90; Glucose 113 mg/dL (70-105); Potassium 3.6 mmol/L (3.5-5.1); Sodium 138 mmol/L (136-145)
[2017-12-04 06:27] LABS: #Basophils 0.1 thou/uL (0.0-0.2); #Eosinphils 0.6 thou/uL (0.0-0.7); #Lymphocytes 1.3 thou/uL (1.20-3.40); #Monocytes 0.8 thou/uL (0.11-0.59); #Neutrophils 7.8 thou/uL (1.40-6.50); %Basophils 0.5 % (0.0-1.0); %Eosinophils 5.7 % (0.0-10.0); %Lymphocytes 12.5 % (21.0-51.0); %Neutrophils 73.4 % (42.0-75.0); Hemoglobin 11.7 g/dL (12.0-16.0); Mean Corpuscular HGB CONC 33.1 g/dL (32.0-36.0); Mean Corpuscular Hemoglobin 29.1 pg (27.0-31.0); Mean Corpuscular Volume 87.9 fl (81.0-99.0); Mean Platelet Volume 9.4 fL (7.4-10.4); Platelet Count 222 thou/uL (130-400); RBC Distribution Width 12.6 % (11.5-14.5); Red Blood Cell (RBC) Count 4.02 mill/uL (4.20-5.40); White Blood Cell (WBC) Count 10.6 thou/uL (4.8-10.8)
[2017-12-04] MEDS: Diabetic Tussin 200 MG/10 ML UDCUP PO SCH ×3 (06:42→21:54)
[2017-12-04 08:23] LABS: Actual Bicarbonate (HCO3a) 27.5 mEq/L (22-26); Base Excess (BEa) 3.2 mEq/L (0 (+/-) 2.5); CO2 Tension 40.9 mmHg (35.0-45.0); O2 Tension (PaO2) 96.8 mmHg (80.0-100.0); pH, Arterial 7.45 (7.35-7.45)
[2017-12-04 08:24] LABS: Calcium, Ionized 1.2 mmol/L (1.12-1.30); Hematocrit-ABG 34.7 % (36.0-47.0); Hemoglobin (Hb) 11.5 g/dL (12.0-16.0); Puncture Site LR
[2017-12-04 08:25] LABS: ALV-art Gradient 135.275 (0-20)
--- NOTE | 2017-12-04 08:55 | ULT ---
BILATERAL LOWER EXTREMITY VENOUS DUPLEX SONOGRAM: Date: 12/04/17 HISTORY: Bilateral leg pain and edema. FINDINGS: Each common femoral vein and greater saphenous junction were evaluated along with each femoral and de ep femoral, popliteal, and posterior tibial vein. There is good color and spectral Doppler flow, comp ression, and augmentation. IMPRESSION: No sonographic evidence of deep venous thrombosis within either lower extremity. POS: [facility]
[2017-12-04] MEDS: Metoprolol Tartrate 25 MG TAB PER TUBE SCH (09:00)
[2017-12-04] MEDS: niCARdipine HCl 50 MG in Sodium Chloride 0.9% 250 ML 230 ML IVPB SCH ×3 (09:00→18:20)
[2017-12-04] MEDS: Lisinopril 10 MG TAB PER TUBE SCH (09:00)
--- NOTE | 2017-12-04 09:31 | CT ---
PRELIMINARY REPORT/[facility]/EMERGENTY AFTER-HOURS PROCEDURE CT Head Without Intravenous Contrast EXAM DATE/TIME: Exam ordered 12/04/2017 4:03 AM CLINICAL HISTORY: 57 years old, female; Condition or disease; Aneurysm, cerebral; Patient HX: F/u on bleed TECHNIQUE: Axial computed tomography images of the head/brain without intravenous contrast. COMPARISON: CT Brain WO Con 2017-11-28 03:43 FINDINGS: Brain: Redemonstrated is a large LEFT basal ganglia parenchymal hemorrhage measuring approximately 5. 1 x 4.2 cm with intraventricular extension with layering in the bilateral occipital horns, stable fro m prior. Hemorrhage is also noted within the third and LEFT lateral ventricles, slightly less prominent from prior. No significant white matter disease. Midline shift: Midline shift now measures approximately 5 mm, decreased from prior. Ventricles: See above. Bones/joints: Normal. No acute fracture. Soft tissues: Normal. Sinuses: Unremarkable as visualized. No acute sinusitis. Mastoid air cells: Unremarkable as visualized. No mastoid effusion. Tubes, lines and devices: There is a RIGHT frontal ventricular drain coursing through the frontal hor ns with tip overlying the LEFT basal ganglia. IMPRESSION: LEFT basal ganglia hemorrhage with intraventricular extension and interval reduction in midline shift as above. Thank you for allowing us to participate in the care of your patient. Dictated and Authenticated by: Evan Bradford MD 12/04/2017 5:43 AM Central Time ([place] & [place]) FINAL REPORT CT HEAD NONCONTRAST: DATE: 12/04/17. TIME: Performed on an emergency basis at 0404 hours. HISTORY: Intracranial hemorrhage. Followup. COMPARISON: 11/28/17. FINDINGS: Findings agree with the preliminary report by by Dr. Nguyễn from [facility]. Large left b vickie ganglia hematoma with interventricular extension and decompressing ventriculostomy catheter are again demonstrated. Ventricular dilatation and shift of the septum pellucidum have decreased slightl y. POS: [facility]
--- NOTE | 2017-12-04 09:56 | RAD ---
PORTABLE AP CHEST: Date: 12/04/17 HISTORY: On ventilator. COMPARISON: 12/03/17. FINDINGS: Endotracheal tube and nasogastric tubes remain in place and unchanged in position. There is air space opacity seen at the right lung base, which could be related to atelectasis or developing pneumonia. There is mild atelectasis present at the left lung base. Cardiac silhouette is magnified by projectio n. Pulmonary vasculature is within normal limits. [place] screws overlie the right humeral head. No ot her interval change. IMPRESSION: Persistent air space opacity at the right lung base which could be related to atelectasis or pneumoni a. Follow-up to resolution recommended. POS: [facility]
--- NOTE | 2017-12-04 12:57 | PRG ---
DATE OF SERVICE: 12/04/2017 Ms. Collazo is now hospital day #8 having intracranial hemorrhage with EVD placement. The patient con tinued to improve neurologically. Her fever has waxed and waned although currently is afebrile. Her cultures have been negative and she is on cefepime. Medicine plans to consult General Surgery for a trach and PEG placement later this week. The patient's EVD has been set at 20 cm of water and her o utput has roughly been 10 mL an hour. We will attempt to wean her drain and have placed the setting at 15 cm of water. ICPs has have remained stable, ranging from 8-12. She does attempt to open her e yes and blinks and is able to attempt to follow commands in the left upper extremity. She continues to withdrawal to noxious stimulus more briskly in the right upper extremity than the right lower extr emity. We will check back on her and we did order an ultrasound of the bilateral lower extremities, which is negative. Again, we will follow up with serial ultrasounds of the legs every 3 days. We wi ll check back on the patient's neurologic status, but again hope to wean the patient's drain shahida blanco
--- NOTE | 2017-12-04 13:50 | PRG ---
DATE OF SERVICE: 12/04/2017 SUBJECTIVE: Ms. Yeny Collazo is stable overnight. Her sedation was held this morning. OBJECTIVE: VITAL SIGNS: Blood pressure is 157/74, heart rate 74. HEENT: She would try to open her eyes to voice and did not get her to follow any commands. LUNGS: Clear. HEART: Regular rhythm. ABDOMEN: Soft. LABORATORY DATA: White count 10.6, hemoglobin 11.1, platelets 222. Sodium 141, potassium 3.9, chlor monalisa 108, bicarbonate 26, BUN 17, creatinine 0.54. PH 7.45, CO2 of 40, PO2 96. IMPRESSION AND PLAN: Respiratory failure after brain hemorrhage. I would recommend that we wait unt il the ventricular drain issues are resolved. Once the drains removed, it will be technically more f easible to take her downstairs for a trach and a PEG. I would recommend that we switch her to Preced ex if we need sedation. Her temperature has been less than 101 now for several days. We will continue the Rocephin for now and add Precedex to her MAR. We will use this only if needed. Hopefully, we can gradually allow her to awaken. Critical care time was 30 minutes.
--- NOTE | 2017-12-04 14:26 | PDOC.PN ---
- Subjective Encounter Start Date: 12/04/17 Encounter Start Time: 14:40 -: non-verbal Subjective: Patient unchanged overnight. Continues to have regular posturing episodes. -: Attempting to wean propofol. Still requiring Cardene drip. - Objective MAR Reviewed: Yes Vital Signs & Weight: Vital Signs (12 hours) Temp Pulse Resp BP Pulse Ox 12/04/17 14:02 69 16 98 12/04/17 14:00 16 12/04/17 13:02 73 131/64 12/04/17 12:00 99.4 F 24 H 12/04/17 10:35 94 157/74 H 12/04/17 10:00 20 12/04/17 09:00 151/71 H 12/04/17 08:00 99.8 F H 94 18 99 12/04/17 07:56 99 151/71 H 12/04/17 07:23 84 12/04/17 07:00 99.8 F H 12/04/17 06:00 12 12/04/17 04:00 99.6 F 14 Weight Admit Weight 208 lb Weight 234 lb 2.095 oz Most Recent Monitor Data Heart Rate from ECG 70 NIBP 109/54 NIBP BP-Mean 63 Respiration from ECG 18 SpO2 98 I&O: 12/03/17 12/04/17 12/05/17 06:59 06:59 06:59 Intake Total 2858 2716 102 Output Total 2660 1665 864 Balance 198 1051 -762 Result Diagrams: 12/04/17 06:19 12/04/17 05:00 Phys Exam - Physical Examination sedated on vent Respiratory: no wheezing, no rales, no rhonchi Cardiovascular: RRR, no significant murmur Gastrointestinal: soft, positive bowel sounds intermittent posturing and valsalva episode, just a few seconds each, no other movement Deviation from normal: unresponsive on vent Dx/Plan (1) ICH (intracerebral hemorrhage) Code(s): I61.9 - NONTRAUMATIC INTRACEREBRAL HEMORRHAGE, UNSPECIFIED Status: Acute Qualifiers: Intracerebral hemorrhage etiology: nontraumatic Comment: s/p EVD per NS, trying to wean drain (2) Fever Code(s): R50.9 - FEVER, UNSPECIFIED Status: Resolved Comment: suspect aspiration PNA or cerebral fever from massive cerebral hemorrhage, on Rocephin, negative cultures (3) Respiratory failure requiring intubation Code(s): J96.90 - RESPIRATORY FAILURE, UNSP, UNSP W HYPOXIA OR HYPERCAPNIA Status: Acute Comment: after ICH, unable to extubate due to not protecting airway, will likely need trach per pulmonology (4) Factor 8 level High Status: Chronic Comment: Discussed w Pt's PCP and Ship Wirer Dr. Romo, q3day DVT U/S per NS (5) Chronic anticoagulation Code(s): Z79.01 - FDC (CURRENT) USE OF ANTICOAGULANTS Status: Acute Comment: Xarelto on hold due to brain bleed (6) Hypertensive urgency Code(s): I16.0 - HYPERTENSIVE URGENCY Status: Acute Comment: better controlled on Cardene drip - Plan cont current plan of care, continue antibiotics, DVT proph w/SCDs Increase metoprolol and lisinopril to try to get off cardene drip * . - Discharge Day Encounter end time: 15:00
[2017-12-04] MEDS: cefTRIAXone\\ROCEPHIN 2 GM in Sodium Chloride 0.9% 100 ML IVPB SCH (15:31)
[2017-12-04] MEDS: Labetalol HCl 100 MG/20 ML VIAL SLOW IVP PRN (17:52)
[2017-12-04] MEDS: Lisinopril 20 MG TAB PER TUBE SCH (21:54)
[2017-12-04] MEDS: Metoprolol Tartrate 50 MG TAB PER TUBE SCH (21:54)
[2017-12-05] MEDS: niCARdipine 20MG In NaCl 20 MG/200 ML BAG IVPB SCH ×2 (04:16→05:53)
[2017-12-05 04:45] LABS: #Basophils 0.1 thou/uL (0.0-0.2); #Eosinphils 0.3 thou/uL (0.0-0.7); #Lymphocytes 1.2 thou/uL (1.20-3.40); %Basophils 0.6 % (0.0-1.0); %Eosinophils 2.6 % (0.0-10.0); %Monocytes 8.8 % (0.0-10.0); %Neutrophils 78.1 % (42.0-75.0); Hemoglobin 12.4 g/dL (12.0-16.0); Mean Corpuscular HGB CONC 32.5 g/dL (32.0-36.0); Mean Corpuscular Hemoglobin 28.2 pg (27.0-31.0); Mean Corpuscular Volume 86.8 fl (81.0-99.0); Platelet Count 215 thou/uL (130-400); RBC Distribution Width 12.1 % (11.5-14.5); White Blood Cell (WBC) Count 11.5 thou/uL (4.8-10.8)
[2017-12-05 05:08] LABS: Anion Gap 12 mmol/L (10-20); BUN (Urea Nitrogen) 21 mg/dL (9.8-20.1); Calc. Creatinine Clearance 195 mL/min (70-130); Calcium 8.9 mg/dL (7.8-10.44); Carbon Dioxide 23 mmol/L (22-29); Chloride 110 mmol/L (98-107); Estimated GFR-MDRD Greater than 90; Glucose 135 mg/dL (70-105); Potassium 3.2 mmol/L (3.5-5.1); Sodium 142 mmol/L (136-145)
[2017-12-05] MEDS: Diabetic Tussin 200 MG/10 ML UDCUP PO SCH ×3 (05:39→23:04)
[2017-12-05 06:40] LABS: Actual Bicarbonate (HCO3a) 27.1 mEq/L (22-26); Base Excess (BEa) 3.4 mEq/L (0 (+/-) 2.5); CO2 Tension 37.8 mmHg (35.0-45.0); Calcium, Ionized 1.2 mmol/L (1.12-1.30); Hematocrit-ABG 30.8 % (36.0-47.0); Hemoglobin (Hb) 10.3 g/dL (12.0-16.0); O2 Tension (PaO2) 59.9 mmHg (80.0-100.0); Puncture Site RRA; pH, Arterial 7.47 (7.35-7.45)
[2017-12-05] MEDS ORDERED: niCARdipine HCl 25 MG in Sodium Chloride 0.9% 250 ML 240 ML IVPB SCH (08:30)
[2017-12-05] MEDS: Metoprolol Tartrate 50 MG TAB PER TUBE SCH ×2 (08:46→22:13)
[2017-12-05] MEDS: Lisinopril 20 MG TAB PER TUBE SCH ×2 (08:46→22:13)
--- NOTE | 2017-12-05 09:47 | RAD ---
CHEST ONE VIEW: History: Dyspnea. Follow up. Comparison: 12-04-17 FINDINGS: Cardiac silhouette is magnified by projection. Pulmonary vasculature more engorged than on the previo us study with worsening patchy bibasilar infiltrates. Mediastinum midline. Lines and tubes appear unc hanged in position. ship unloader leads overlie the chest. IMPRESSION: 1. Worsening pulmonary vascular congestion. POS: [facility]
--- NOTE | 2017-12-05 10:05 | PDOC.PN ---
- Subjective Encounter Start Date: 12/05/17 Encounter Start Time: 12:30 -: non-verbal Subjective: Patient still intubated, following some commands on left intermittently, -: no changes overnight. - Objective MAR Reviewed: Yes Vital Signs & Weight: Vital Signs (12 hours) Temp Pulse Resp BP Pulse Ox 12/05/17 09:20 80 12/05/17 08:46 143/66 H 12/05/17 08:00 99.1 F 12/05/17 07:24 71 149/65 H 12/05/17 06:00 99.8 F H 18 12/05/17 05:00 99.8 F H 12/05/17 02:31 67 111/55 L 12/05/17 02:00 17 12/05/17 00:00 99.9 F H 71 25 H 93 L Weight Admit Weight 208 lb Weight 233 lb 14.567 oz Most Recent Monitor Data Heart Rate from ECG 74 NIBP 148/68 NIBP BP-Mean 105 Respiration from ECG 21 SpO2 97 I&O: 12/04/17 12/05/17 12/06/17 06:59 06:59 06:59 Intake Total 2716 3137.7 60 Output Total 1665 2350 269 Balance 1051 787.7 -209 Result Diagrams: 12/05/17 04:22 12/05/17 04:22 Phys Exam - Physical Examination intubated HEENT: moist MMs Respiratory: no wheezing, no rales, no rhonchi Cardiovascular: RRR, no significant murmur Gastrointestinal: soft, positive bowel sounds continued posturing, rogerio on right with stimulation, grabbing things with left hand Deviation from normal: responsive to pain, on the vent Dx/Plan (1) ICH (intracerebral hemorrhage) Code(s): I61.9 - NONTRAUMATIC INTRACEREBRAL HEMORRHAGE, UNSPECIFIED Status: Acute Qualifiers: Intracerebral hemorrhage etiology: nontraumatic Comment: s/p EVD per NS, trying to wean drain (2) Fever Code(s): R50.9 - FEVER, UNSPECIFIED Status: Resolved Comment: suspect aspiration PNA or cerebral fever from massive cerebral hemorrhage, on Rocephin, negative cultures (3) Respiratory failure requiring intubation Code(s): J96.90 - RESPIRATORY FAILURE, UNSP, UNSP W HYPOXIA OR HYPERCAPNIA Status: Acute Comment: after ICH, unable to extubate due to not protecting airway, will likely need trach per pulmonology (4) Factor 8 level High Status: Chronic Comment: Discussed w Pt's PCP and Retail Operations Specialist Dr. Romo, q3day DVT U/S per NS (5) Chronic anticoagulation Code(s): Z79.01 - ASSISTED (CURRENT) USE OF ANTICOAGULANTS Status: Acute Comment: Xarelto on hold due to brain bleed (6) Hypertensive urgency Code(s): I16.0 - HYPERTENSIVE URGENCY Status: Acute Comment: better controlled on Cardene drip - Plan cont current plan of care, continue antibiotics, PT/OT, respiratory therapy * . - Discharge Day Encounter end time: 12:50
--- NOTE | 2017-12-05 10:42 | PRG ---
DATE OF SERVICE: 12/05/2017 Ms. Collazo is hospital day #9 following admission for a large left thalamic hypertensive hemorrhage o n Xarelto, neurological decline. Her EVD has been open to 15 cm of water and her ICPs have been in t he 5-10 mmHg range. Her output is continuing to decrease. This is a positive prognostic sign and ho pefully we will be able to remove the EVD potentially as early as tomorrow. We will raise her EVD to 20 cm of water. Continue to monitor. Neurologically, she opens her eyes to voice. She has even fo llowed commands on the left side with posturing on the right.
[2017-12-05] MEDS: niCARdipine HCl 50 MG in Sodium Chloride 0.9% 250 ML 230 ML IVPB SCH (10:55)
--- NOTE | 2017-12-05 12:15 | ULT ---
LEFT UPPER EXTREMITY VENOUS DOPPLER ULTRASOUND EVALUATION: History: Left upper extremity pain, redness, and edema. Patient with known clot in the left upper ext remity. FINDINGS: Multiple longitudinal and transverse images of the left upper extremity venous system is obtained usi ng a multihertz linear array transducer. Real-time, color flow, and spectral waveform doppler analysi s used to evaluate the left upper extremity. Good flow is seen in the left internal jugular vein, subclavian vein, axillary vein, brachial veins, ulnar and radial veins. There continues to be clot seen in the left cephalic vein, unchanged since the previous exam. No sign ificant interval changes seen. IMPRESSION: Continued presence of thrombosed cephalic vein with clot seen within the cephalic vein. No evidence o f flow seen. Sonographic evaluation is unchanged since the previous exam from five days earlier. POS: JAY
[2017-12-05] MEDS: cefTRIAXone\\ROCEPHIN 2 GM in Sodium Chloride 0.9% 100 ML IVPB SCH (14:16)
[2017-12-05] MEDS: Acetaminophen 650 MG/20.3 ML UDCUP PO PRN (14:17)
[2017-12-05] MEDS ORDERED: Furosemide 100 MG/10 ML VIAL SLOW IVP SCH (15:30)
--- NOTE | 2017-12-05 16:17 | PRG ---
DATE OF SERVICE: 12/05/2017 SUBJECTIVE: Yeny Collazo is doing more with her left side today. OBJECTIVE: VITAL SIGNS: Heart rate 78, blood pressure 169/81, respiratory rates in the teens to low 20s. LUNGS: Clear. HEART: Regular rhythm. ABDOMEN: Soft. Temperature max was 100.3 in the last 24 hours. LABORATORY DATA: White count 11.5, hemoglobin 12.4, platelets 215,000. Electrolytes are normal. Creatinine is 0.5. IMPRESSION: 1. Status post placement of ventricular drain after a brain hemorrhage. It is anticipated that hopefully in 24-48 hours, the drain will be removed. Once we removed the drain, we can consider placement of a tracheostomy and PEG and then weaning from mechanical ventilation. 2. Atelectasis stable. Chest radiograph shows an increase in interstitial markings bilaterally. Intake and output is positive 787, so we will give her Lasix. Critical care time 30 minutes. [facility]
[2017-12-06] MEDS: Labetalol HCl 100 MG/20 ML VIAL SLOW IVP PRN (02:35)
[2017-12-06] MEDS: niCARdipine HCl 50 MG in Sodium Chloride 0.9% 250 ML 230 ML IVPB SCH ×4 (03:36→21:07)
[2017-12-06] MEDS: Diabetic Tussin 200 MG/10 ML UDCUP PO SCH ×5 (06:19→21:31)
[2017-12-06 08:26] LABS: Actual Bicarbonate (HCO3a) 27.1 mEq/L (22-26); Base Excess (BEa) 3.9 mEq/L (0 (+/-) 2.5); CO2 Tension 35.6 mmHg (35.0-45.0); O2 Tension (PaO2) 45.5 mmHg (80.0-100.0)
[2017-12-06 08:27] LABS: Hematocrit-ABG 33.1 % (36.0-47.0)
[2017-12-06 08:29] LABS: Calcium, Ionized 1.2 mmol/L (1.12-1.30); Puncture Site L.R.
[2017-12-06] MEDS: Acetaminophen 650 MG/20.3 ML UDCUP PO PRN ×2 (08:48→13:56)
[2017-12-06] MEDS: Metoprolol Tartrate 50 MG TAB PER TUBE SCH ×2 (08:48→21:04)
[2017-12-06] MEDS: Lisinopril 20 MG TAB PER TUBE SCH ×2 (08:48→21:04)
[2017-12-06] MEDS: Furosemide 40 MG/4 ML VIAL SLOW IVP SCH (08:49)
[2017-12-06 09:43] LABS: Hemoglobin 12.2 g/dL (12.0-16.0); Mean Corpuscular HGB CONC 33.3 g/dL (32.0-36.0); Mean Corpuscular Hemoglobin 28.7 pg (27.0-31.0); Mean Corpuscular Volume 86.1 fl (81.0-99.0); Mean Platelet Volume 9.1 fL (7.4-10.4); Platelet Count 236 thou/uL (130-400); RBC Distribution Width 12.2 % (11.5-14.5); Red Blood Cell (RBC) Count 4.26 mill/uL (4.20-5.40); White Blood Cell (WBC) Count 18.7 thou/uL (4.8-10.8)
[2017-12-06 09:44] LABS: Anion Gap 10 mmol/L (10-20); BUN (Urea Nitrogen) 23 mg/dL (9.8-20.1); Calc. Creatinine Clearance 165 mL/min (70-130); Calcium 8.9 mg/dL (7.8-10.44); Carbon Dioxide 27 mmol/L (22-29); Chloride 108 mmol/L (98-107); Estimated GFR-MDRD Greater than 90; Glucose 181 mg/dL (70-105); Sodium 142 mmol/L (136-145)
--- NOTE | 2017-12-06 09:48 | RAD ---
PORTABLE AP CHEST XRAY: DATE: 12/06/17. HISTORY: On ventilator. COMPARISON: 12/05/17 at 0453 hours. FINDINGS: The endotracheal tube and nasogastric tube remain in place and unchanged in position. There has been interval development of complete opacification of the right hemithorax with tracheal deviation and s hift of mediastinal structures to the right. Findings may be related to collapse of the right lung. There is what appears to be abrupt termination of the right mainstem bronchus. Findings could be re lated to mucus plugging given short interval change. There is mild atelectasis at the left lung base . IMPRESSION: 1. Interval development of complete opacification of the right hemithorax with mild shift of the mid line structures to the right. There does appear to be abrupt termination of the mainstem bronchus wh ich could be related to mucus plugging. 2. The above findings were discussed with Esther, the patient's nurse in the CCU, on 12/06/17 at 0757 hours. CODE CR POS: OFF
[2017-12-06 09:53] LABS: Potassium 2.8 mmol/L (3.5-5.1)
[2017-12-06 10:31] LABS: Band 27 % (5-11); Lymphocytes 6 % (21-51); MDiff Complete? YES; Monocytes 7 % (0-10); Neutrophil 60 % (42-75); RBC Morphology Normal
--- NOTE | 2017-12-06 10:31 | PRG ---
DATE OF SERVICE: 12/06/2017 Ms. Collazo is hospital day 10 following large left thalamic hemorrhage with extension into the ventri cles and obstructive hydrocephalus. She has done very well and tolerating her EVD open at 20 cm of w ater and while she has had output, this appears to be more consistent with when she coughs or gags on her endotracheal tube. This morning she opens her eyes to voice. She does have a downgaze preferen ce and right-sided neglect, but does follow commands intermittently in the left upper extremity with posturing in the right, again related to the location of her hemorrhage and associated mass effect. I am very pleased with how she is doing and her ICPs this morning have ranged in the 8-12 mmHg range and her scans have been satisfactory. As such, we will plan to remove her EVD.
--- NOTE | 2017-12-06 10:55 | PDOC.PN ---
- Subjective Encounter Start Date: 12/06/17 Encounter Start Time: 10:53 Subjective: intubated, sedated - Objective MAR Reviewed: Yes Vital Signs & Weight: Vital Signs (12 hours) Temp Pulse Resp BP Pulse Ox 12/06/17 08:48 142/77 H 12/06/17 07:40 96 143/73 H 12/06/17 07:39 95 36 H 91 L 12/06/17 07:00 102.2 F H 12/06/17 06:00 32 H 12/06/17 04:00 99.9 F H 308 H 90 L 12/06/17 02:35 91 160/79 H 12/06/17 02:03 78 160/79 H 12/06/17 02:00 77 27 H 91 L 12/06/17 00:00 99.0 F Weight Admit Weight 208 lb Weight 231 lb 14.821 oz Most Recent Monitor Data Heart Rate from ECG 87 NIBP 124/64 NIBP BP-Mean 80 Respiration from ECG 23 SpO2 99 I&O: 12/05/17 12/06/17 12/07/17 06:59 06:59 06:59 Intake Total 3137.7 3245.2 30 Output Total 2350 3725 850 Balance 787.7 -479.8 -820 Result Diagrams: 12/06/17 09:00 12/06/17 09:00 Radiology Reviewed by me: Yes (cxr- white out on R) Phys Exam - Physical Examination decreased BS, 0n R Cardiovascular: RRR, no significant murmur Gastrointestinal: soft, positive bowel sounds Musculoskeletal: edema present flaccid on R, posturing Dx/Plan (1) Chronic anticoagulation Code(s): Z79.01 - 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 VERTICAL (CURRENT) USE OF ANTICOAGULANTS Status: Acute Comment: Xarelto on hold due to brain bleed (2) ICH (intracerebral hemorrhage) Code(s): I61.9 - NONTRAUMATIC INTRACEREBRAL HEMORRHAGE, UNSPECIFIED Status: Acute Qualifiers: Intracerebral hemorrhage etiology: nontraumatic Comment: s/p EVD per NS, trying to wean drain (3) Respiratory failure requiring intubation Code(s): J96.90 - RESPIRATORY FAILURE, UNSP, UNSP W HYPOXIA OR HYPERCAPNIA Status: Acute Comment: after ICH, unable to extubate due to not protecting airway, will likely need trach per pulmonology (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 Romo, q3day DVT U/S per NS (5) Fever Code(s): R50.9 - FEVER, UNSPECIFIED Status: Resolved Comment: suspect aspiration PNA or cerebral fever from massive cerebral hemorrhage, on Rocephin, negative cultures (6) Hypertension Code(s): I10 - ESSENTIAL (PRIMARY) HYPERTENSION Status: Chronic - Plan BP controlled, cont current TX -: on vent, adverse cxr- discuss with truck driver heavy- bronchoscopy -: enteral nutrition -: blood, urine C&S * .
[2017-12-06] MEDS: cefTRIAXone\\ROCEPHIN 2 GM in Sodium Chloride 0.9% 100 ML IVPB SCH (13:57)
[2017-12-06] MEDS: Propofol 1,000 MG/100 ML VIAL IV PRN (14:27)
[2017-12-06] MEDS ORDERED: Amlodipine 5 MG TAB PO SCH (15:00)
--- NOTE | 2017-12-06 15:10 | PRG ---
DATE OF SERVICE: 12/06/2017 SUBJECTIVE: Yeny Collazo has her eyes open, looked around the room. She has been intermittently follows commands on the left. She seems to ignore everything on the right as expected. OBJECTIVE: VITAL SIGNS: Heart rate 84, blood pressure 160/80, respiratory rate is per mechanical ventilation. LUNGS: Clear. HEART: Regular rhythm. Abdomen: Soft and nontender. EXTREMITIES: No clubbing, cyanosis, or edema. LABORATORY DATA: White count 18.7, hemoglobin 12.2, platelets 236,000. She had a left shift this morning. Chest radiograph shows opacification of right hemithorax with volume loss, it is very similar to the x-ray she had either on the 2nd or third day when she came in that responded to nebulized treatments and high dose guaifenesin. Recommended bronchoscopy for suctioning, but Miroslava, the respiratory therapist was already suctioned tremendous amount of mucus out of her. We will send the bronchoscopy specimen for culture and broaden her antimicrobial therapy. Her electrolytes are essentially unchanged. Blood gas shows a pH 7.5, CO2 of 35, and pO2 45. IMPRESSION: 1. Parenchymal brain hemorrhage. 2. Status post ventricular drain placement, this has been removed. 3. 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 4. Atelectasis of the right lung with fever. We will reculture her blood and culture her bronchoscopy specimens. I placed a consult to General Surgery for tracheostomy and PEG. Family has been updated today. Critical care time 35 minutes. YOU
--- NOTE | 2017-12-06 17:41 | OP ---
12/06/2017 PROCEDURE PERFORMED: Fiberoptic bronchoscopy. STORE LOSS PREVENTION MANAGER: Tio Henriquez M.D. INDICATION: Atelectasis with right mainstem mucus plug. DESCRIPTION OF PROCEDURE: She was given 100 mg of propofol for sedation. The bronchoscope was introduced while she was being mechanically ventilated via swivel adapter. Surprisingly, the right mainstem bronchus was not occluded. I believe that the respiratory therapist had suctioned majority of the mucus out. All respective segments in the middle lobe, lower lobe and upper lobe were entered and suctioned. No mucus plugging was encountered. I suspect radiograph will be improved tomorrow. Specimens will be sent for Gram stain and culture. She tolerated the procedure well. No hypotension or hypoxemia. MTDD
[2017-12-06] MEDS: Vancomycin HCl 1 GM in Premix Bag 1 BAG IVPB SCH (21:05)
[2017-12-07] MEDS: niCARdipine HCl 50 MG in Sodium Chloride 0.9% 250 ML 230 ML IVPB SCH ×4 (02:52→19:58)
[2017-12-07] MEDS: Diabetic Tussin 200 MG/10 ML UDCUP PO SCH ×6 (02:53→21:49)
[2017-12-07 06:47] LABS: #Basophils 0.1 thou/uL (0.0-0.2); #Eosinphils 0.1 thou/uL (0.0-0.7); #Lymphocytes 1.1 thou/uL (1.20-3.40); #Monocytes 0.8 thou/uL (0.11-0.59); #Neutrophils 12.3 thou/uL (1.40-6.50); %Basophils 0.4 % (0.0-1.0); %Eosinophils 0.7 % (0.0-10.0); %Lymphocytes 7.9 % (21.0-51.0); %Monocytes 5.8 % (0.0-10.0); %Neutrophils 85.2 % (42.0-75.0); Hemoglobin 11.6 g/dL (12.0-16.0); Mean Corpuscular HGB CONC 33.4 g/dL (32.0-36.0); Mean Corpuscular Hemoglobin 29.3 pg (27.0-31.0); Mean Corpuscular Volume 87.9 fl (81.0-99.0); Mean Platelet Volume 9.2 fL (7.4-10.4); Platelet Count 224 thou/uL (130-400); RBC Distribution Width 12.3 % (11.5-14.5); Red Blood Cell (RBC) Count 3.97 mill/uL (4.20-5.40); White Blood Cell (WBC) Count 14.4 thou/uL (4.8-10.8)
[2017-12-07 06:56] LABS: Anion Gap 11 mmol/L (10-20); BUN (Urea Nitrogen) 26 mg/dL (9.8-20.1); Calc. Creatinine Clearance 178 mL/min (70-130); Calcium 9.2 mg/dL (7.8-10.44); Carbon Dioxide 30 mmol/L (22-29); Chloride 109 mmol/L (98-107); Estimated GFR-MDRD Greater than 90; Glucose 147 mg/dL (70-105); Sodium 147 mmol/L (136-145)
[2017-12-07 07:05] LABS: Potassium 2.9 mmol/L (3.5-5.1)
--- NOTE | 2017-12-07 07:19 | PDOC.PN ---
- Subjective Encounter Start Date: 12/07/17 Encounter Start Time: :17 Subjective: intubated, no appropriate responce - Objective MAR Reviewed: Yes Vital Signs & Weight: Vital Signs (12 hours) Temp Pulse Resp BP Pulse Ox 12/07/17 07:11 111 H 163/81 H 12/07/17 07:10 107 H 22 H 98 12/07/17 06:00 18 12/07/17 05:00 99.9 F H 12/07/17 04:00 12 12/07/17 03:58 106 H 12/07/17 03:57 98 12/07/17 02:00 19 12/07/17 00:00 100.3 F H 22 H 12/06/17 22:33 75 135/58 L 97 12/06/17 22:00 12 12/06/17 21:04 171/73 H 12/06/17 20:00 99.8 F H 107 H 18 95 Weight Admit Weight 208 lb Weight 229 lb 11.547 oz Most Recent Monitor Data Heart Rate from ECG 82 NIBP 153/62 NIBP BP-Mean 74 Respiration from ECG 16 SpO2 100 I&O: 12/06/17 12/07/17 12/08/17 06:59 06:59 06:59 Intake Total 3245.2 3355 Output Total 3725 3075 Balance -479.8 280 Result Diagrams: 12/07/17 06:29 12/07/17 06:29 Radiology Reviewed by me: Yes (cxr- marked improved airation on R, ET tube) Phys Exam - Physical Examination Neck: no JVD good BS bilat, some rhonchi Cardiovascular: RRR, no significant murmur Gastrointestinal: soft, positive bowel sounds Musculoskeletal: edema present Dx/Plan (1) Chronic anticoagulation Code(s): Z79.01 - BRIDGE OPERATOR SLIP (CURRENT) USE OF ANTICOAGULANTS Status: Acute Comment: Xarelto on hold due to brain bleed (2) ICH (intracerebral hemorrhage) Code(s): I61.9 - NONTRAUMATIC INTRACEREBRAL HEMORRHAGE, UNSPECIFIED Status: Acute Qualifiers: Intracerebral hemorrhage etiology: nontraumatic Comment: s/p EVD per NS, trying to wean drain (3) Respiratory failure requiring intubation Code(s): J96.90 - RESPIRATORY FAILURE, UNSP, UNSP W HYPOXIA OR HYPERCAPNIA Status: Acute Comment: after ICH, unable to extubate due to not protecting airway, will likely need trach per pulmonology (4) Factor 8 level High Status: Chronic Comment: Discussed w Pt's PCP and Meat Hostess Dr. Romo, q3day DVT U/S per NS (5) Fever Code(s): R50.9 - FEVER, UNSPECIFIED Status: Resolved Comment: suspect aspiration PNA or cerebral fever from massive cerebral hemorrhage, on Rocephin, negative cultures (6) Hypertension Code(s): I10 - ESSENTIAL (PRIMARY) HYPERTENSION Status: Chronic (7) Hypokalemia Code(s): E87.6 - HYPOKALEMIA Status: Acute - Plan still vent dependent -: cont enteral feedings -: trach, PEG? -: cont iv antibx -: discuss with intesivist * .
[2017-12-07 07:52] LABS: CO2 Tension 40.8 mmHg (35.0-45.0); pH, Arterial 7.47 (7.35-7.45)
[2017-12-07 07:53] LABS: Actual Bicarbonate (HCO3a) 29.1 mEq/L (22-26); Hematocrit-ABG 34.2 % (36.0-47.0); Hemoglobin (Hb) 11.5 g/dL (12.0-16.0)
[2017-12-07 07:54] LABS: Calcium, Ionized 1.2 mmol/L (1.12-1.30); Puncture Site L.R.
[2017-12-07] MEDS: Vancomycin HCl 1 GM in Premix Bag 1 BAG IVPB SCH ×2 (09:16→20:50)
[2017-12-07] MEDS: Metoprolol Tartrate 50 MG TAB PER TUBE SCH ×2 (09:17→20:54)
[2017-12-07] MEDS: Lisinopril 20 MG TAB PER TUBE SCH ×2 (09:17→20:54)
[2017-12-07] MEDS: Furosemide 40 MG/4 ML VIAL SLOW IVP SCH (09:17)
--- NOTE | 2017-12-07 09:33 | RAD ---
AP VIEW OF THE CHEST: INDICATION: Intubation. COMPARISON: Prior study dated 12/06/17. FINDINGS: Since the comparison examination, there has been significant improvement in the aeration of the right lung. There is some residual volume loss within the right lung base. The left lung is clear. Mild cardiomegaly is stable. No pneumothorax is evident. ET tube tip is seen just above the level of th e thoracic inlet.. Recommend consideration of advancement approximately 4 cm. Gastric catheter proj ects beyond the left hemidiaphragm and beyond the field of view. Osseous structures are unchanged. IMPRESSION: 1. Improved aeration of the right lung with some residual mild subsegmental volume loss in the right lung base. 2. Endotracheal tube tip is slightly high just above the level of the thoracic inlet, some of which is related to projection. I would recommend consideration for repositioning with advancement of the tube approximately 4.5 cm. 3. Gastric catheter. 4. No pneumothorax. POS: [facility]
[2017-12-07] MEDS: Famotidine/PF 20 mg/2ml Vial SLOW IVP SCH ×2 (10:07→21:50)
--- NOTE | 2017-12-07 11:00 | ULT ---
BILATERAL LOWER EXTREMITY VENOUS ULTRASOUND: History Edema and swelling. COMPARISON: 12/04/16. TECHNIQUE: Romo scale, color flow, Doppler imaging, and spectral waveform analysis was performed of the left and right lower extremity venous system. FINDINGS: Bilaterally, there is compressibility, presence of flow, and augmentation of the common femoral vein, femoral vein, and popliteal vein. There is flow in bilateral greater saphenous veins, profunda vein s, and posterior tibial veins. IMPRESSION: No evidence of thrombus in the left or right lower extremity deep venous system. POS: [facility]
--- NOTE | 2017-12-07 12:21 | PRG ---
DATE OF SERVICE: 12/07/2017 Ms. Collazo, this morning, is alert and her disconjugate gaze has certainly improved and is mild at th is point. She has significant right-sided neglect. She follows commands in the left upper extremity , but not in the left lower extremity. She extends her postures on the right side. Again, this is e ssentially due to hemorrhage involving her thalamus and posterior limb of the internal capsule. She is being arranged for tracheostomy and PEG tube placement. An ultrasound has to be ordered today, as she has a history of thrombophilia. I would hold on any anticoagulation; however, given the size of her hemorrhage, hypertension continues to be the main issue and our medical colleagues are diligentl y working on improving this. Her wounds are healing well. At this point, I am going to turn over ou r care to our medical colleagues, as I do not see any need for placement of a shunt on this patient a nd I am pleased with her continued improvement neurologically.
[2017-12-07] MEDS: cefTRIAXone\\ROCEPHIN 2 GM in Sodium Chloride 0.9% 100 ML IVPB SCH (14:52)
--- NOTE | 2017-12-07 16:57 | PRG ---
DATE OF SERVICE: 12/07/2017 SUBJECTIVE: Ms. Collazo's eyes are open. She looks around the room. She spontaneously moves her left side intermittently. She is in no distress. Consults placed yesterday by me for tracheostomy and PEG. OBJECTIVE: VITAL SIGNS: Blood pressure has been in the 150s today, respiratory rate 17, oximetry is 100%. LUNGS: Clear. HEART: Regular rhythm. ABDOMEN: Soft. DATABASE: Chest radiograph is reviewed and show a dramatic improvement of aeration of the right lung. White count 14.4, hemoglobin 11.6, platelets 224. Electrolytes are normal except for potassium 2.9. Intake and output is positive 280. IMPRESSION: 1. Thalamic brain hemorrhage. 2. Right-sided neglected hemiparesis secondary to this. 3. Respiratory failure, recommend tracheostomy and PEG. 4. ? Elevated factor VIII. From what I have read and discussed with health and safety advisor, nobody agrees completely as to whether or not this is a true hypercoagulable state. She will be left off her anticoagulants. When Neurosurgery feels she is far enough down the road , she will be placed on DVT prophylaxis. Doppler venograms have been done serially and they have continued to be negative in both lower extremities. We are awaiting placement of her tracheostomy. I met with the son and answered all of his questions. I suspect once we have a tracheostomy in place, she will wean off mechanical ventilation. With regards to her right lung atelectasis, she is dramatically improved on today's radiograph. In regards to her fever, it may have been simply related to the atelectasis. We repeated culture yesterday that are negative so far. Yeast was isolated in her urine, which does not need to be treated until the Brown is removed. Critical care time [address] [facility]
[2017-12-07] MEDS: Acetaminophen 650 MG/20.3 ML UDCUP PO PRN (20:55)
[2017-12-08] MEDS: Diabetic Tussin 200 MG/10 ML UDCUP PO SCH ×6 (03:05→22:34)
[2017-12-08 04:12] LABS: #Eosinphils 0.1 thou/uL (0.0-0.7); #Lymphocytes 1.2 thou/uL (1.20-3.40); #Monocytes 0.9 thou/uL (0.11-0.59); #Neutrophils 11.4 thou/uL (1.40-6.50); %Basophils 0.3 % (0.0-1.0); %Eosinophils 0.7 % (0.0-10.0); %Lymphocytes 9.1 % (21.0-51.0); %Monocytes 6.3 % (0.0-10.0); %Neutrophils 83.6 % (42.0-75.0); Hemoglobin 11.4 g/dL (12.0-16.0); Mean Corpuscular HGB CONC 32.5 g/dL (32.0-36.0); Mean Corpuscular Hemoglobin 28.8 pg (27.0-31.0); Mean Corpuscular Volume 88.7 fl (81.0-99.0); Mean Platelet Volume 9.5 fL (7.4-10.4); Platelet Count 217 thou/uL (130-400); RBC Distribution Width 12.4 % (11.5-14.5); Red Blood Cell (RBC) Count 3.95 mill/uL (4.20-5.40); White Blood Cell (WBC) Count 13.6 thou/uL (4.8-10.8)
[2017-12-08 04:27] LABS: Anion Gap 11 mmol/L (10-20); BUN (Urea Nitrogen) 25 mg/dL (9.8-20.1); Calc. Creatinine Clearance 188 mL/min (70-130); Calcium 8.9 mg/dL (7.8-10.44); Carbon Dioxide 28 mmol/L (22-29); Chloride 111 mmol/L (98-107); Estimated GFR-MDRD Greater than 90; Glucose 139 mg/dL (70-105); Sodium 147 mmol/L (136-145)
[2017-12-08 04:38] LABS: Potassium 2.9 mmol/L (3.5-5.1)
[2017-12-08] MEDS: niCARdipine HCl 50 MG in Sodium Chloride 0.9% 250 ML 230 ML IVPB SCH ×3 (05:15→17:00)
[2017-12-08] MEDS: Acetaminophen 650 MG/20.3 ML UDCUP PO PRN ×2 (05:25→11:18)
[2017-12-08 05:31] VITALS: BMI 38.0
[2017-12-08 06:59] LABS: Actual Bicarbonate (HCO3a) 28.2 mEq/L (22-26); Base Excess (BEa) 4.7 mEq/L (0 (+/-) 2.5); CO2 Tension 37.7 mmHg (35.0-45.0); Calcium, Ionized 1.2 mmol/L (1.12-1.30); Hematocrit-ABG 28.3 % (36.0-47.0); Hemoglobin (Hb) 9.8 g/dL (12.0-16.0); O2 Tension (PaO2) 90.1 mmHg (80.0-100.0); Puncture Site RRA; pH, Arterial 7.49 (7.35-7.45)
[2017-12-08 07:00] LABS: ALV-art Gradient 219.275 (0-20)
--- NOTE | 2017-12-08 08:37 | PDOC.PN ---
- Subjective Encounter Start Date: 12/08/17 Encounter Start Time: 08:35 Subjective: eyes open, do not track - Objective MAR Reviewed: Yes Vital Signs & Weight: Vital Signs (12 hours) Temp Pulse Resp BP 12/08/17 06:40 107 H 12/08/17 06:00 12 12/08/17 05:00 101.0 F H 12/08/17 04:00 99.0 F 18 12/08/17 02:25 80 12/08/17 02:00 12 12/08/17 00:00 98.8 F 12 12/07/17 22:16 79 136/64 12/07/17 22:00 12 12/07/17 20:54 152/76 H Weight Admit Weight 208 lb Weight 228 lb 9.91 oz Most Recent Monitor Data Heart Rate from ECG 108 NIBP 110/61 NIBP BP-Mean 77 Respiration from ECG 20 SpO2 98 I&O: 12/07/17 12/08/17 12/09/17 06:59 06:59 06:59 Intake Total 3355 3330 Output Total 3075 3810 Balance 280 -480 Result Diagrams: 12/08/17 03:17 12/08/17 03:17 Phys Exam - Physical Examination Neck: no JVD bilat rhonchi, wheezes Cardiovascular: RRR, no significant murmur Gastrointestinal: soft, non-tender, positive bowel sounds Musculoskeletal: edema present flaccid on R Dx/Plan (1) Chronic anticoagulation Code(s): Z79.01 - CAPTAIN FIRE PREVENTION BUREAU (CURRENT) USE OF ANTICOAGULANTS Status: Acute Comment: Xarelto on hold due to brain bleed (2) ICH (intracerebral hemorrhage) Code(s): I61.9 - NONTRAUMATIC INTRACEREBRAL HEMORRHAGE, UNSPECIFIED Status: Acute Qualifiers: Intracerebral hemorrhage etiology: nontraumatic Comment: s/p EVD per NS, trying to wean drain (3) Respiratory failure requiring intubation Code(s): J96.90 - RESPIRATORY FAILURE, UNSP, UNSP W HYPOXIA OR HYPERCAPNIA Status: Acute Comment: after ICH, unable to extubate due to not protecting airway, will likely need trach per pulmonology (4) Factor 8 level High Status: Chronic Comment: Discussed w Pt's PCP and Automotive General Manager Dr. Romo, q3day DVT U/S per NS (5) Fever Code(s): R50.9 - FEVER, UNSPECIFIED Status: Resolved Comment: suspect aspiration PNA or cerebral fever from massive cerebral hemorrhage, on Rocephin, negative cultures (6) Hypertension Code(s): I10 - ESSENTIAL (PRIMARY) HYPERTENSION Status: Chronic (7) Hypokalemia Code(s): E87.6 - HYPOKALEMIA Status: Acute (8) Hypernatremia Code(s): E87.0 - HYPEROSMOLALITY AND HYPERNATREMIA Status: Acute (9) UTI (urinary tract infection) Status: Acute Qualifiers: Urinary tract infection type: catheter-associated UTI Indwelling urinary catheter type: indwelling urethral catheter Encounter type: initial encounter Qualified Code(s): T83.511A - Infection and inflammatory reaction due to indwelling urethral catheter, initial encounter; N39.0 - Urinary tract infection , site not specified; N39.0 - Urinary tract infection, site not specified Comment: yeast - Plan cont K+ replacement -: Trach planned -: enteral nutrition -: add iv diflucan -: discuss with scrub wheel operator * .
[2017-12-08 08:41] LABS: Vancomycin, Trough 6.2 ug/mL
[2017-12-08] MEDS: Lisinopril 20 MG TAB PER TUBE SCH ×2 (09:43→20:48)
[2017-12-08] MEDS: Furosemide 40 MG/4 ML VIAL SLOW IVP SCH (09:44)
[2017-12-08] MEDS: Metoprolol Tartrate 50 MG TAB PER TUBE SCH ×2 (09:44→20:49)
[2017-12-08] MEDS: Famotidine/PF 20 mg/2ml Vial SLOW IVP SCH ×2 (09:48→20:49)
[2017-12-08] MEDS: Fluconazole In NaCl,Iso-Osm 200 MG in Premix Bag 1 BAG IVPB SCH (09:56)
--- NOTE | 2017-12-08 11:06 | PRG ---
DATE OF SERVICE: 12/08/2017 SUBJECTIVE: Ms. Collazo is clinically unchanged. She makes eye contact. She has a left lateral gaze preference. OBJECTIVE: VITAL SIGNS: Heart rate is 107, blood pressure 110/61, respiratory rate is 20. LUNGS: Clear. HEART: Regular rhythm. ABDOMEN: Soft. EXTREMITIES: Without clubbing, cyanosis, or edema. LABORATORY DATA: White count 13.6, hemoglobin 11.4, platelets 217. Potassium is 2.9. Remainder of her electrolytes are normal. She is still having temperature spikes. Neurologically, she is otherwise unchanged. Blood gas: pH of 7.49, CO2 of 37, pO2 of 90. Chest radiograph shows continued improved aeration of her right lung. IMPRESSION AND PLAN: 1. Respiratory failure associated with parenchymal brain hemorrhage, on anticoagulants. 2. Atelectasis of the right lung twice. The second time, she underwent bronchoscopy with resolution of her mucus plugging. 3. Fever. Cultures remain negative. Bronchoscopic culture from 2 days ago is growing no pathogens. We will plan to stop her antibiotics today and just observe her. This may be a central fever. 4. Respiratory failure. I had a long discussion with her son this morning. The entire family believes that she would want to continue to go on like this. She is told family within the last year, she never wanted to go to a group home or be put through a long-term care experience on mechanical ventilator. Family plans to have another meeting with palliative care, but if everybody in the family agrees that she would not want to proceed forward, then extubation and comfort care would be the next step. Critical care time 30 min. YOU
--- NOTE | 2017-12-08 11:42 | CON ---
DATE OF CONSULTATION: 12/08/2017 This is a consult note from Dr. Henriquez at [facility] for trach and PEG. HISTORY OF PRESENT ILLNESS: This is a 57-year-old female who presents after sustaining a traumatic b rain hemorrhage. This is associated with right-sided hemiparesis. She has been in respiratory failu re. I have been consulted for tracheostomy and feeding tube placement. Most of the history is obtai mikael from the chart given the fact that the patient is on a ventilator. PAST MEDICAL HISTORY: Includes depression, hypercoagulable state, hypercalcemia, hypertension. PAST SURGICAL HISTORY: , coronary artery bypass, tubal ligation, ureteral stent. MEDICINES: See list. ALLERGIES: No known drug allergies. SOCIAL HISTORY: Unable to obtain. REVIEW OF SYSTEMS: Unable to obtain. PHYSICAL EXAMINATION: VITAL SIGNS: Pulse 107; blood pressure 110/61; respirations, vent. Temperature 101 at 5 a.m. this m orning. CHEST: Coarse breath sounds. HEART: Increased rate, regular rhythm. ABDOMEN: Soft, nontender, no scars or hernias. NECK: Examination of neck reveals no lymphadenopathy. There is previous low collar incision, likely from parathyroid removal. LABORATORY DATA AND IMAGING DATA: Today, her white count is 13, hemoglobin 11, platelet count is 217 . Creatinine 0.56. Chest x-ray yesterday revealed volume loss in right lung base. Venogram yesterd ay, no evidence of thrombus. ASSESSMENT: 1. Respiratory failure secondary to intracranial bleed. 2. Protein calorie malnutrition. PLAN: Tracheostomy and PEG feeding tube placement. The family is hesitant to give consent at this t gatito. They are unsure of whether to perform comfort measures only. I am certainly around and availab le for tracheostomy and feeding tube any time. We will follow with you.
--- NOTE | 2017-12-08 14:28 | PDOC.EVN ---
Event Note - Event Note Event Note: DNR, family request. discussed with sons
[2017-12-08] MEDS ORDERED: Morphine 4 MG/ML VIAL SLOW IVP PRN (21:46)
[2017-12-08] MEDS ORDERED: Lorazepam 2 MG/ML VIAL SLOW IVP PRN (21:47)
[2017-12-09] MEDS: Morphine 4 MG/ML VIAL SLOW IVP PRN ×11 (00:04→23:06)
[2017-12-09] MEDS: Lorazepam 2 MG/ML VIAL SLOW IVP PRN ×4 (01:06→07:34)
[2017-12-09] MEDS: Diabetic Tussin 200 MG/10 ML UDCUP PO SCH ×2 (01:40→06:31)
--- NOTE | 2017-12-09 08:48 | PDOC.PN ---
- Subjective Encounter Start Date: 12/09/17 Encounter Start Time: 08:45 Subjective: extubated. unresponsive - Objective Resuscitation Status: Resuscitation Status DNR:Do Not Resuscitate Vital Signs & Weight: Vital Signs (12 hours) Temp BP Pulse Ox 12/09/17 04:00 100.3 F H 12/09/17 00:00 100.4 F H 72 L 12/08/17 20:48 182/75 H Weight Admit Weight 208 lb Weight 227 lb 8.273 oz Most Recent Monitor Data Heart Rate from ECG 106 NIBP 135/74 NIBP BP-Mean 113 Respiration from ECG 29 SpO2 58 I&O: 12/08/17 12/09/17 12/10/17 06:59 06:59 06:59 Intake Total 3330 1137 Output Total 3810 3000 Balance -480 -9333 Result Diagrams: 12/08/17 03:17 12/08/17 03:17 Phys Exam - Physical Examination Neck: no JVD coarse BS Cardiovascular: RRR, no significant murmur tachy Gastrointestinal: soft, positive bowel sounds Musculoskeletal: edema present Dx/Plan (1) Chronic anticoagulation Code(s): Z79.01 - SU[employer] (CURRENT) USE OF ANTICOAGULANTS Status: Acute Comment: Xarelto on hold due to brain bleed (2) ICH (intracerebral hemorrhage) Code(s): I61.9 - NONTRAUMATIC INTRACEREBRAL HEMORRHAGE, UNSPECIFIED Status: Acute Qualifiers: Intracerebral hemorrhage etiology: nontraumatic Comment: s/p EVD per NS, trying to wean drain (3) Respiratory failure requiring intubation Code(s): J96.90 - RESPIRATORY FAILURE, UNSP, UNSP W HYPOXIA OR HYPERCAPNIA Status: Acute Comment: after ICH, unable to extubate due to not protecting airway, will likely need trach per pulmonology (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 Romo, q3day DVT U/S per NS (5) Fever Code(s): R50.9 - FEVER, UNSPECIFIED Status: Resolved Comment: suspect aspiration PNA or cerebral fever from massive cerebral hemorrhage, on Rocephin, negative cultures (6) Hypertension Code(s): I10 - ESSENTIAL (PRIMARY) HYPERTENSION Status: Chronic (7) Hypokalemia Code(s): E87.6 - HYPOKALEMIA Status: Acute (8) Hypernatremia Code(s): E87.0 - HYPEROSMOLALITY AND HYPERNATREMIA Status: Acute (9) UTI (urinary tract infection) Status: Acute Qualifiers: Urinary tract infection type: catheter-associated UTI Indwelling urinary catheter type: indwelling urethral catheter Encounter type: initial encounter Qualified Code(s): T83.511A - Infection and inflammatory reaction due to indwelling urethral catheter, initial encounter; N39.0 - Urinary tract infection , site not specified; N39.0 - Urinary tract infection, site not specified Comment: yeast - Plan palliative care, no further agressive support * .
--- NOTE | 2017-12-09 11:45 | PRG ---
DATE OF SERVICE: 12/09/2017 SUBJECTIVE: The family decided to have the endotracheal tube removed last night. The patient is DNR and comfort measures are in place. She appears to be in mild respiratory discomfort, but has no sandra reness of the situation. PHYSICAL EXAMINATION: VITAL SIGNS: Temperature is 100.3, pulse 106, and blood pressure 135/74. HEENT: Unremarkable. NECK: No JVD. LUNGS: Coarse breath sounds. CARDIAC: S1 and S2, regular. ABDOMEN: Soft. EXTREMITIES: Edematous throughout. ASSESSMENT: 1. Status post intracranial hemorrhage. 2. Status post respiratory failure. PLAN: The patient can be moved out any time from a pulmonary standpoint on comfort care.
[2017-12-09] MEDS: Acetaminophen 650 MG Suppository PR PRN (20:19)
[2017-12-09] MEDS: Famotidine/PF 20 mg/2ml Vial SLOW IVP SCH (23:02)
[2017-12-09] MEDS: Fluconazole In NaCl,Iso-Osm 200 MG in Premix Bag 1 BAG IVPB SCH (23:02)
[2017-12-09] MEDS: Lisinopril 20 MG TAB PER TUBE SCH (23:03)
[2017-12-09] MEDS: Furosemide 40 MG/4 ML VIAL SLOW IVP SCH (23:03)
[2017-12-09] MEDS: Metoprolol Tartrate 50 MG TAB PER TUBE SCH (23:03)
[2017-12-10] MEDS: Morphine 4 MG/ML VIAL SLOW IVP PRN ×9 (02:46→22:04)
[2017-12-10] MEDS: Acetaminophen 650 MG Suppository PR PRN ×2 (08:25→15:58)
--- NOTE | 2017-12-10 11:55 | PRG ---
DATE OF SERVICE: 12/10/2017 SUBJECTIVE: The patient is obtunded, does not respond to deep stimulation. PHYSICAL EXAMINATION: VITAL SIGNS: Temperature 102, pulse 126, respirations 26, O2 saturation 98%, blood pressure 162/80. GENERAL: She is not respond to commands. She is somewhat tachypneic, but does not appear in overt p ain or discomfort. HEENT: Otherwise unremarkable. NECK: No JVD. LUNGS: Coarse breath sounds. CARDIAC: S1 and S2 regular. ABDOMEN: Soft. EXTREMITIES: Trace edema. ASSESSMENT: 1. Status post intracranial hemorrhage with deep anoxic brain injury. 2. Status post respiratory failure. PLAN: Comfort care. The patient is unlikely to recover.
--- NOTE | 2017-12-10 14:07 | PDOC.PN ---
- Subjective Encounter Start Date: 12/10/17 Encounter Start Time: 13:00 -: non-verbal, old records requested/rev Pt seen and examined, chart reviewed in its entirety. followup for hemorrhagic CVA, metabolic encephalopathy, respiratory failure. Pt extubated, transferred to floor for comfort care. Pt continue to have guppy- mouth breathing. some gurgling. Suctioning offered for pt, but family dienst want anything that would be uncomfortable. voiced no other current needs. ROS not obtainable - Objective Resuscitation Status: Resuscitation Status DNR:Do Not Resuscitate MAR Reviewed: Yes Vital Signs & Weight: Vital Signs (12 hours) Temp Pulse Resp BP Pulse Ox 12/10/17 08:01 102.0 F H 126 H 26 H 162/80 H 90 L 12/10/17 07:09 100.2 F H 102 H 28 H 12/10/17 02:50 100.2 F H 102 H 28 H Weight Admit Weight 208 lb Weight 227 lb 8.273 oz Most Recent Monitor Data Heart Rate from ECG 126 NIBP 153/69 NIBP BP-Mean 100 Respiration from ECG 33 SpO2 54 I&O: 12/09/17 12/10/17 12/11/17 06:59 06:59 06:59 Intake Total 1137 50 Output Total 3000 1710 Balance -1863 -1660 Result Diagrams: 12/08/17 03:17 12/08/17 03:17 Radiology Reviewed by me: Yes EKG Reviewed by me: Yes Phys Exam - Physical Examination unresponsive, looks comfortable HEENT: moist MMs, sclera anicteric, oral pharynx no lesions Neck: no nodes, no JVD, supple Respiratory: clear to auscultation bilateral upper airway gurgling tachy, regular Gastrointestinal: soft, no distention, positive bowel sounds Musculoskeletal: edema present Lymphatic: no nodes Skin: no rash, normal turgor, cap refill <2 seconds Dx/Plan (1) Hypernatremia Code(s): E87.0 - HYPEROSMOLALITY AND HYPERNATREMIA Status: Acute (2) Hypertensive urgency Code(s): I16.0 - HYPERTENSIVE URGENCY Status: Acute Comment: better controlled on Cardene drip (3) Hypokalemia Code(s): E87.6 - HYPOKALEMIA Status: Acute Comment: on CCU electrolyte protocol (4) Hypokalemia Code(s): E87.6 - HYPOKALEMIA Status: Acute (5) ICH (intracerebral hemorrhage) Code(s): I61.9 - NONTRAUMATIC INTRACEREBRAL HEMORRHAGE, UNSPECIFIED Status: Acute Qualifiers: Intracerebral hemorrhage etiology: nontraumatic Comment: comfort care. (6) Respiratory failure requiring intubation Code(s): J96.90 - RESPIRATORY FAILURE, UNSP, UNSP W HYPOXIA OR HYPERCAPNIA Status: Acute Comment: comfort care, extubated. O2 and suctioning for comfort (7) Sinus tachycardia Code(s): R00.0 - TACHYCARDIA, UNSPECIFIED Status: Acute Comment: BBlocker on hold. comfort care only - Plan cont current plan of care, plan discussed w/ family, respiratory therapy * .
[2017-12-10 21:45] VITALS: BP 118/79; TEMP 102.8
--- NOTE | 2017-12-12 13:30 | DS ---
DATE OF ADMISSION: 11/26/2017 DATE OF : 12/10/2017 at 2315. PRIMARY CARE PHYSICIAN: Listed as Luis Carballo. CAUSE OF : 1. Cardiac arrest, immediate. 2. Respiratory arrest, immediate. 3. Hypertensive intracranial hemorrhage. 4. Acute encephalopathy secondary to intracranial hemorrhage. 5. Essential hypertension, chronic. 6. Urinary tract infection with yeast, catheter associated, not present on admission. CONSULT[facility]: [facility]. 2. Pulmonary Critical Care, initial consult by Dr. Robert Esquivel. 3. General Surgery, Dr. Bob Han, 12/08/2017. PROCEDURES: On 12/06/[address] Tio Henriquez, fiberoptic bronchoscopy. On 11/30/2017, vascular ult rasound showed a thrombus involving the proximal mid left cephalic vein. Vascular ultrasound follow, 12/05/2017, that showed a thrombosed cephalic vein without flow and unchanged. HISTORY AND PHYSICAL: Ms. Collazo is a 57-year-old female who presented to emergency department on who carried a medical alert device. EMS was activated. On EMS arrival, the patient was not ed to have right-sided facial droop, slurred speech, and right-sided stroke. She was taken to emerge ncy department where a CT scan showed evidence of hemorrhage. Patient was admitted to the hospital, Pulmonary was consulted and Neurosurgery was following the intracranial hemorrhage with serial CT sca ns. The patient remains sedated, intubated, 08/28/2015. She went fiberoptic bronchoscopy with removal of secretions. These were eventually cultured, positive for Strep pyogenes. The patient had no apprec iable improvement in neurologic function. She had a left lateral gaze preference and make eye contac t. Family began meeting with palliative care and finally I spoke with Dr. Han on 12/09/2007 rega rding PEG and trach placement. They were decided not to have 1 placed at that time. On 12/09, the family decided on comfort care only. The patient was extubated compassionately and tra nsferred to the floor. I took over the case on 12/10/2017. She was still having heavy breathing. No labs were drawn. Diana serrano was at bedside and the patient appeared comfortable. At night 12/10/2017, she went into respiratory and cardiac arrest and was pronounced at 2315 . [facility] was contacted and the body was collected and transferred to [facility].
--- NOTE | 2017-12-12 13:42 | OP ---
DATE OF PROCEDURE: 11/26/2017 SURGEON: Dom Ruvalcaba M.D. CAREER TECHNICAL SUPERVISOR: Michael Godinez PA-C. PREPROCEDURE DIAGNOSES: Obstructive hydrocephalus with a large thalamic hemorrhage with intraventric ular extension and neurological decline. POSTPROCEDURE DIAGNOSES: Obstructive hydrocephalus with a large thalamic hemorrhage with intraventri cular extension and neurological decline. PROCEDURE: Placement of a right-sided external ventricular drain. DESCRIPTION OF PROCEDURE: After the emergent nature was conveyed to the family regarding the need fo r placement of a drain, the patient was positioned with a right frontal Ruslan's region identified. Hair was clipped, this region was sterilely cleansed, prepared, and draped. Proper patient pause and identification was carried out. The scalp was then opened with a small incision, the drill perforat or then perforated the skull. The dura opened. The ventricular catheter was placed with return of b loody CSF under high pressure. The drain was then tunneled and secured, and the wound closed. It wa s secured to the [place] drain system. The procedure was well tolerated.
== END 2017-12-10 23:15 | disposition expired | DRG 981 ==
LOC: ERS 09:45 → CCU 12:54 → T4-B 12-09 10:40
PROVIDERS: ADMIT Surgery; ATTEND Surgery
PROC: 0BH17EZ Insertion of Endotracheal Airway into Trachea, Via Natural or Artificial Opening (ICD-10-PCS; principal; 2017-11-26)
PROC: 5A1955Z Respiratory Ventilation, Greater than 96 Consecutive Hours (ICD-10-PCS; 2017-11-26)
PROC: 0B9F8ZZ Drainage of Right Lower Lung Lobe, Via Natural or Artificial Opening Endoscopic (ICD-10-PCS; 2017-12-06)
PROC: 0B9C8ZZ Drainage of Right Upper Lung Lobe, Via Natural or Artificial Opening Endoscopic (ICD-10-PCS; 2017-12-06)
PROC: 0B958ZZ Drainage of Right Middle Lobe Bronchus, Via Natural or Artificial Opening Endoscopic (ICD-10-PCS; 2017-12-06)
DX: I61.0 Nontraumatic intracerebral hemorrhage in hemisphere, subcortical (principal); J96.00 Acute respiratory failure, unspecified whether with hypoxia or hypercapnia; T83.511A Infection and inflammatory reaction due to indwelling urethral catheter, initial encounter; B37.49 Other urogenital candidiasis; G93.41 Metabolic encephalopathy; J98.11 Atelectasis; G81.91 Hemiplegia, unspecified affecting right dominant side; G91.1 Obstructive hydrocephalus; E46 Unspecified protein-calorie malnutrition; E87.0 Hyperosmolality and hypernatremia; I82.612 Acute embolism and thrombosis of superficial veins of left upper extremity; I61.5 Nontraumatic intracerebral hemorrhage, intraventricular; Z51.5 Encounter for palliative care; Z66 Do not resuscitate; I16.0 Hypertensive urgency; I10 Essential (primary) hypertension; R29.810 Facial weakness; I46.9 Cardiac arrest, cause unspecified; R47.81 Slurred speech; E87.6 Hypokalemia; Z86.73 Personal history of transient ischemic attack (TIA), and cerebral infarction without residual deficits; Z79.01 Long term (current) use of anticoagulants; Z79.899 Other long term (current) drug therapy; Z68.37 Body mass index [BMI] 37.0-37.9, adult; Y84.6 Urinary catheterization as the cause of abnormal reaction of the patient, or of later complication, without mention of misadventure at the time of the procedure; Y92.239 Unspecified place in hospital as the place of occurrence of the external cause
CPT/HCPCS: 31500; 36415; 51702; 70450; 71045; 80048; 80053; 80202; 82553; 82805; 83735; 84484; 85025; 85610; 85730; 87040; 87070; 87086; 87205; 89220; 93005; 93970; 94002; 94003; 94640; 96361; 96365; 96366; 96374; G8978-GP-CN; G8979-GP-CK; G8987-GO-CN; G8988-GO-CN; G8989-GO-CN; J0696; J1450; J1940; J2001; J2060; J2270; J2704; J3010; J3370; J3480; J7050; J7620; J9132; S0028